=== PATIENT | female | born 1935 | race African-American/Black ===

== ENCOUNTER 2020-03-27 11:46 | Observation (INO) | payer MEDICARE, SELFPAY ==
[2020-03-27] VITALS (9 sets, daily range): BP systolic 134–198; BP diastolic 80–115; PULSE 64–106; RESP 16–18; TEMP 36–36.4; O2SAT 97–100; BMI 29.7
--- NOTE | ~2020-03-27 | CT_ITS ---
EXAMINATION: CTA BRAIN/CAROTID DATE: 03/27/2020 13:22 INDICATION: Stroke TECHNIQUE: Computed tomographic angiography (CTA) of the head and neck was performed with 100 mL Omni paque-350 intravenous contrast. Multiplanar reconstructions and maximum intensity projection 3D-recon structions of the carotid arteries and of the intracranial arteries were created by the technologist on a separate workstation. Automated exposure control and iterative reconstruction technique were emp loyed.The dose-length product was 972.80 mGy-cm. COMPARISON: Head CT dated 03/27/2020 FINDINGS: Carotid arteries: No appreciable atherosclerotic plaque in the bilateral common or internal carotid arteries with 0% st enosis of the left or right carotid bulbs relative to normal distal artery lumen diameter (NASCET cri teria). Cervical soft tissues are unremarkable. Mild emphysema with fine peripheral reticular opaciti es in the visualized bilateral upper lungs which could represent either atelectasis during expiratory phase of imaging or mild pulmonary edema. Severe lower cervical spondylosis. Intracranial arteries There is no hemodynamically significant stenosis in the vertebral, basilar and internal carotid arter ies. Vertebral arteries are codominant. There are no aneurysms identified. Both A1 and P1 segments a re patent. The right P1 segment is smaller than the left with flow to the right posterior cerebral ar kavitha is supplemented by collateral flow from the right internal carotid artery via a patent right pos terior commuting artery. Cerebral arterial arborization appears symmetric. No abnormally enhancing br ain lesions. IMPRESSION: 1. 0% stenosis of the left and right carotid bulbs relative to normal distal artery lumen diameter (N ASCET criteria). 2. Normal cerebral CT angiogram with no significant stenosis, aneurysm or thrombosis. 3. Fine peripheral reticular opacities at the apices of the lungs which could represent atelectasis o r mild pulmonary edema. 4. Mild emphysema. Reviewed, dictated and finalized at location A. NESS ASSOCIATE IMPRESSION: 1. 0% stenosis of the left and right carotid bulbs relative to normal distal ar kavitha lumen diameter (NASCET criteria). 2. Normal cerebral CT angiogram with no significant stenosis, aneurysm or throm bosis. 3. Fine peripheral reticular opacities at the apices of the lungs which could r epresent atelectasis or mild pulmonary edema. 4. Mild emphysema.
--- NOTE | ~2020-03-27 | XR_ITS ---
EXAMINATION: XR chest 1V portable DATE: 03/27/2020 12:06 INDICATION: Unresponsive. Stroke symptoms. TECHNIQUE: frontal view of the chest was obtained. COMPARISON: Chest radiograph dated 10/14/2018 FINDINGS: Calcified nodule at the left lung base and calcified left hilar and mediastinal lymph nodes consisten t with old granulomatous disease. The lungs remain otherwise clear with no focal airspace opacities, pulmonary edema, pleural effusion or pneumothorax. The cardiomediastinal silhouette is normal. Loose osteochondral bodies at the right shoulder. IMPRESSION: 1. No acute cardiopulmonary disease. Reviewed, dictated and finalized at location A. ICAL GARMENT ASSEMBLY SUPERVISOR
--- NOTE | ~2020-03-27 | CT_ITS ---
EXAMINATION: CT brain wo con DATE: 03/27/2020 11:54 INDICATION: Headache and left-sided facial droop TECHNIQUE: Computed tomography (CT) of the head was performed without intravenous contrast. Sagittal and coronal reconstructions were performed. The mA was adjusted according to patient size. Iterative reconstruction technique was employed. The dose-length product was 605.33 mGy-cm. COMPARISON: head CT dated 10/14/18 FINDINGS: No acute intracranial hemorrhage, acute infarction or abnormal extra axial fluid collection. Small ol d lacunar infarct in the white matter of the left frontal lobe centrum semiovale. There is moderate s cattered white matter hypoattenuation consistent with chronic small vessel ischemic disease. Symmetr ic prominence of the sulci and ventricles consistent with mild age-appropriate diffuse cerebral volum e loss. No mass/mass effect. Changes of bilateral intraocular lens replacement. Mild mucoperiosteal t hickening at the bilateral ethmoid sinuses. The orbits and mastoid air cells are normal. Intracranial calcified cerebral atherosclerosis is noted. IMPRESSION: 1. No acute intracranial process. 2. Small old lacunar infarct at the left frontal lobe centrum semiovale. 3. Age-related changes including mild diffuse volume loss and moderate scattered white matter hypoatt enuation consistent with chronic small vessel ischemic disease. Reviewed, dictated and finalized at location A. US PERFORMER IMPRESSION: 1. No acute intracranial process. 2. Small old lacunar infarct at the left frontal lobe centrum semiovale. 3. Age-related changes including mild diffuse volume loss and moderate scattere d white matter hypoattenuation consistent with chronic small vessel ischemic di sease.
--- NOTE | ~2020-03-27 | MR_ITS ---
EXAMINATION: MR brain/brain stem wo con DATE: 03/28/2020 12:08 INDICATION: Word finding abnormality. TECHNIQUE: Magnetic resonance imaging (MRI) of the brain and brainstem was performed without intraven ous contrast. Sequences included sagittal and axial T1-weighted FSE, axial diffusion-weighted FS EPI, axial T2*-weighted GRE, axial T2-weighted FLAIR Propeller, and axial T2-weighted Propeller. Apparent diffusion coefficient (ADC) maps were created. COMPARISON: Brain MRI 10/10/2018, head CT 03/27/2020 FINDINGS: There are scattered areas of nonspecific increased T2-weighted signal intensity in the cere bral white matter and walker. There is no intracranial hemorrhage, acute infarction, or abnormal intrac ranial mass lesion. The ventricles are normal in size. The mastoid air cells are normal. There are li aguila changes of ocular lens replacement surgeries. There is mild mucosal thickening in the paranasal sinuses. IMPRESSION: 1. Stable moderate nonspecific cerebral white matter disease and pontine disease, which likely repres ents chronic small vessel ischemic disease. Reviewed, dictated and finalized at location A. IER ASSOCIATE IMPRESSION: 1. Stable moderate nonspecific cerebral white matter disease and pontine diseas e, which likely represents chronic small vessel ischemic disease.
[2020-03-27 12:19] LABS: Basophils Percent Auto 0.4 % (0.2-1.2); Eosinophils Absolute Auto 0.1 K/mm3 (0-0.3); Eosinophils Percent Auto 1.5 % (0-4.4); Hematocrit 41.4 % (37.0-47.0); Hemoglobin 14.2 g/dL (12.0-15.0); Immature Granulocyte Absolute 0.03 K/mm3 (0.00-0.031); Immature Granulocyte Percent A 0.6 % (0-0.5); Immature Platelet Fraction Pct 7.9 % (0.9-11.2); Lymphocytes Absolute Auto 1.61 K/mm3 (0.9-3.2); Lymphocytes Percent Auto 30.6 % (18.3-44.2); Mean Corpuscular HGB Conc 34.3 g/dl (32-36); Mean Corpuscular Hemoglobin 31.1 pg (26-34); Mean Corpuscular Volume 90.6 fl (80-100); Mean Platelet Volume 10.7 fl (7.4-10.4); Monocytes Absolute Auto 0.4 K/mm3 (0.1-0.6); Monocytes Percent Auto 7.2 % (2.6-8.5); Neutrophils Absolute Auto 3.1 K/mm3 (1.3-6.7); Neutrophils Percent Auto 59.7 % (45.5-73.1); Platelet Count Result 220 k/mm3 (150-375); Red Blood Count 4.57 M/mm3 (4.2-5.4); Red Cell Distribution Width 12.2 % (11.5-14.5); White Blood Count 5.3 K/mm3 (4.5-10.0)
[2020-03-27 12:26] LABS: Prothrombin Time 13.5 Seconds (11.1-14.7)
[2020-03-27 12:34] LABS: Platelet Clumps Present; Platelet Estimate Adequate (Adequate)
--- NOTE | 2020-03-27 12:43 | ED.NEUROSD ---
HPI - Neuro Symptoms/Deficit General Chief Complaint: Suspected CVA Stated Complaint: code stroke Time Seen by Provider: 03/27/20 11:53 Source: patient and EMS Limitations: no limitations History of Present Illness HPI Narrative: 84 years old -[place] female, assisting living brought to the emergency room with stroke symptoms. Patient last time was seen at her normal baseline roughly 2-hour prior to calling the ambulance. Patient son called the assisted living asked them to check on his mom because she told him earlier that she had headache. When the staff went to the patient room found her slumped over, unable to talk, unable to do anything could be asked her to do. Patient usually is talkative, walks without janitorial assistant. The staff deny that the patient have any fever, chills, nausea, vomiting, chest pain, back pain, shortness of breath or exposure to anybody with COVID-19. On arrival to the emergency room patient is awake, alert and oriented x3 denying any new symptoms. 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 Related Data Allergies Allergy/AdvReac Type Severity Reaction Status Date / Time isoniazid Allergy Severe SYNCOPE Verified 01/19/20 13:56 meperidine Allergy Mild hives Verified 01/19/20 13:56 morphine Allergy Mild confusion Verified 01/19/20 13:56 Review of Systems Review of Systems: Narrative: CONSTITUTIONAL: Denies fever, chills, or sweats. EYES: Denies visual changes, redness, or discharge. ENT: Denies rhinorrhea, congestion, sore throat, or otalgia. CARDIOVASCULAR: Denies chest pain, palpitations, or edema. RESPIRATORY: Denies cough or dyspnea. GASTROINTESTINAL: Denies abdominal pain, nausea, vomiting, or diarrhea. GENITOURINARY: Denies dysuria or hematuria. SKIN: Denies rash or itching. MUSCULOSKELETAL: Denies back pain, joint pain, or myalgia. NEUROLOGIC: Denies headache, numbness, or weakness. PSYCHIATRIC: Denies anxiety or depression. [facility] Past Medical History Medical History Arthralgia Chronic pain after traumatic injury Diabetes HTN (hypertension) Neurogenic claudication Peripheral neuropathy Spinal stenosis of lumbar region with neurogenic claudication Spinal stenosis, lumbar region without neurogenic claudication Traumatic compression fracture of T12 thoracic vertebra Surgical History Surgical History No history of previous surgery Social History Social History Social History: Smoking status: Never smoker Second hand tobacco smoke exposure: No Alcohol intake: never Substance use: never Substance use type: does not use Gender identity (if verbalized by the patient): Female Exam Narrative: Exam Narrative: General appearance: Well-developed, well-nourished Skin: Normal color Head: Normocephalic, nontraumatic Eyes: Clear conjunctiva ENT: Oropharynx normal, ears normal, nose normal Neck: Supple, nontender Chest and respiratory: Airway patent, no respiratory distress, no accessory muscle use Heart: Regular rate/rhythm Abdomen: Soft, nontender, no organomegaly, quiet bowel sounds Vascular: Normal peripheral pulses, normal capillary refill. Musculoskeletal: Normal range of motion, nontender back, Neurologic: Alert and oriented ? her name, age and the name of the president. FISH PROTECTOR is normal as tested, no gross motor deficit except left facial drooping, history of Friedman's palsy Course Course Emergency Course: Resolved, stable Consultations Consultation #1: dr mercedes Date: 03/27/20 Time: 13:35 Vital Signs Vital signs: Vit
[2020-03-27 12:47] LABS: Partial Thromboplastin Time < 20.0 SECONDS (22.3-36.8)
[2020-03-27 12:55] LABS: Anion Gap 8 mmol/L (8-16); Blood Urea Nitrogen 10 mg/dL (7-17); Calcium 9.7 mg/dL (8.4-10.2); Carbon Dioxide 27 mmol/L (22-30); Chloride 105 mmol/L (98-107); Estimated CRCL calculation 45 ml/min; Estimated Glomerular Filt Rate > 60; Glucose 118 mg/dL (65-105); Potassium 3.4 mmol/L (3.4-5.0); Sodium 140 mmol/L (137-145)
[2020-03-27 13:07] LABS: Troponin I < 0.012 ng/mL (0.000-0.034)
--- NOTE | 2020-03-27 13:40 | ECG_ITS ---
Measurements Intervals [place] Rate: 73 P: -15 MO: 171 QRS: -20 QRSD: 84 T: -15 QT: 413 QTc: 455 Interpretive Statements SINUS RHYTHM DELAYED PRECORDIAL R/S TRANSITION VOLTAGE CRITERIA FOR LVH BORDERLINE T WAVE ABNORMALITY- ANTEROLAT/INF LEADS BASELINE ARTIFACT- I, III, AVR, AVL, AVF, V3 BORDERLINE ECG Electronically Signed On 03-28-2020 8:26:20 CAKE PULLER by Angel Goddard D.O.
[2020-03-27] MEDS: ASPIRIN 81 MG CHEWABLE TABLET 324 MG PO (13:45)
--- NOTE | 2020-03-27 15:28 | ADMGEN ---
This patient, Elizabeth Noel, was admitted to Medical Room 255-01. Patient/family oriented to hospital policies and general routines including ID bracelet, bed and alarms, visiting hours, pain management, procedures, bathroom and other care routines, personal items, smoking policy, room service/diet, and visiting hours. Information on how to activate the Rapid Response Team has been discussed. Patient/Family are encouraged to report perceived risks to care and to ask questions if they do not understand what they are told or what they should do.
--- NOTE | 2020-03-27 16:00 | PM.IMHP ---
H&P: HPI History of Present Illness Date/Time: 03/27/20 16:00 Chief complaint: Not responding to nursing staff. Narrative: Elizabeth Noel is an 84-year-old female with dementia, hypertension, and diet-controlled diabetes who presented to the emergency department earlier today via EMS from her halfway facility for evaluation as she was apparently not responding to nursing staff. She is a fair historian but seems to confabulate when discussing the events that occurred today, and as such some of the following history is obtained via a review of her electronic medical records. I am told that she was in her usual state of health this morning, last seen at approximately 10:30. Not long prior to arrival to the emergency department staff at her nursing facility received a phone call from the patient's son, reporting that the patient had called him with complaints of a headache. They then went to check on the patient and she was found slumped in a chair, alert but unable to talk to follow commands. the patient tells me that she heard what they were saying however was unable to come up with any words. On EMS arrival they noticed a left-sided facial droop but it has since come to fruition that this is residual from Friedman palsy years ago. On arrival to the emergency department she was alert and seemed to have difficulties finding words with evidence of slurred speech and at the time my evaluation her speech is clear but she still appears to have some difficulties with word-finding. At times she will give answers that are somewhat bizarre and not necessarily related to the question asked, and I am not certain if this is perhaps word salad or if this may be due to underlying confusion. She is pretty adamant however that she had a diffuse headache earlier today and just was not feeling like myself. She denies acute auditory and visual changes, vertigo, focal weakness, and paresthesias. Review of Systems Review of Systems: Narrative: Twelve systems are reviewed with pertinent positives and negatives as per HPI. She denies fever, chills, sweats. No recent cold or flu symptoms. She has no known exposure to those positive for COVID-19. She denies chest pain, pleuritic pain, palpitations. No known history of stroke however there is evidence of such on brain MRI today. Appetite has been good. No nausea, vomiting, diarrhea, or dysuria. Except as documented, all other systems were reviewed and are negative. PMFSH Past Medical History Medical History (Updated 03/27/20 @ 20:48 by Carmina Wolf PA-C) Anxiety Chronic back pain Stemming from compression fracture at T12 as well as spinal stenosis in the lumbar region. Compression fracture of T12 vertebra Dementia Depression Diet-controlled type 2 diabetes mellitus Hemoglobin A1c was 5.1% in September 2018. 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 Hypertension Osteoarthritis Peripheral neuropathy Spinal stenosis of lumbar region Surgical History Surgical History (Updated 03/27/20 @ 20:46 by Carmina Wolf PA-C) History of left knee replacement Family History Family History (Updated 03/27/20 @ 20:46 by Carmina Wolf PA-C) Other Hypertension Social History Social History (Updated 03/27/20 @ 22:52 by Carmina Wolf PA-C) Social History: Lives in assisted living at [facility]. She is and has 4 children. 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 No alcohol, tobacco, or illicit substance use. Mariusz Omalley (son) is her surrogate decision maker and she is listed as a full code. Spiritual care concerns: No Meds Home Medications and Allergies Home Medications Medication Instructions Recorded Confirmed Type metoprolol tartrate 50 mg tablet 50 mg PO Q12H #90 tablet 11/23/19 03/27/20 Rx hydrochlorothiazide 12.5 mg tablet 12.5 mg PO DAILY #90 tablet 12/02/19 03/27/20 Rx losartan 100 mg tablet 100 mg PO DAILY #90 tablet 12/02/19 03/27/20 Rx
[2020-03-27] MEDS: METOPROLOL TARTRATE 50 MG TAB PO (21:29)
[2020-03-28] VITALS (7 sets, daily range): BP systolic 121–156; BP diastolic 76–81; PULSE 61–89; RESP 16; TEMP 36.1–36.5; O2SAT 99
[2020-03-28 05:55] LABS: Alanine Aminotransferase 15 U/L (4-35); Albumin Level 3.5 g/dL (3.5-5.1); Alkaline Phosphatase 54 U/L (38-126); Anion Gap 8 mmol/L (8-16); Aspartate Amino Transferase 27 U/L (14-36); Bilirubin,Total 1.4 mg/dL (0.2-1.3); Blood Urea Nitrogen 9 mg/dL (7-17); Calcium 9.3 mg/dL (8.4-10.2); Carbon Dioxide 25 mmol/L (22-30); Chloride 107 mmol/L (98-107); Cholesterol 197 mg/dL (0-200); Estimated CRCL calculation 42 ml/min; Estimated Glomerular Filt Rate > 60; Glucose 121 mg/dL (65-105); HDL Direct 42 mg/dL; Potassium 3.3 mmol/L (3.4-5.0); Sodium 140 mmol/L (137-145); Triglycerides 92 mg/dL (<150)
[2020-03-28 06:00] LABS: Hemoglobin A1C 5.6 % (<5.7)
[2020-03-28 06:06] LABS: LDL Cholesterol Direct 125 mg/dL
[2020-03-28 07:26] LABS: Glucose Point of Care 108 (65-105)
--- NOTE | 2020-03-28 09:13 | WPDNEURCNPN ---
Assessment and Plan Assessment and plan (1) Brain TIA: Code(s): G45.9 - Transient cerebral ischemic attack, unspecified Status: Acute (2) HTN (hypertension): Code(s): I10 - Essential (primary) hypertension Status: Acute (3) Ambulatory dysfunction: Code(s): R26.2 - Difficulty in walking, not elsewhere classified Status: Acute (4) Spinal stenosis, lumbar region without neurogenic claudication: Code(s): M48.061 - Spinal stenosis, lumbar region without neurogenic claudication Status: Acute Additional Plan history of acute changes in the mental status with the complaints of severe headache but with negative CT scan except the old lacunar infarct and negative CTA and clinical examination compatible with old left facial mild dementia MRI will be obtained just rule out the presence of any new stroke in the meantime she will be continued on the same medication that is aspirin 81 mg daily Consult date: 03/28/20 Time Seen: 09:10 HPI: Elizabeth Noel is a 84 year old female Admitted to the hospital with the complaints of not responding to nursing staff in addition to the ongoing history of 1. Dementia 2. Hypertension 3. Diet-controlled diabetes mellitus at the time of initial evaluation in the emergency room it was mention that she has been confabulating. Patient in the was in her room and her son had called the nursing staff that she was complaining of headache Donis they went to check on the patient she was found slumped in a chair but unable to talk and follow the commands on arrival EMS noted that she had left-sided facial droop but it was reported that was from the residual from Friedman's palsy years ago. Subsequently it was noted that she was giving the answers only intermittently appropriately. Patient does have ongoing history of dementia along with hypertension, spinal stenosis of lumbar region with peripheral neuropathy and compression fracture of the T12 vertebra. Evaluation revealed fairly normal labs with potassium of 3.3 glucose 121, total bilirubin 1.4, CT scan of the head with small old lacunar infarct at the left frontal lobe centrum semi ovale and age-related changes, normal CTA with no significant and stenosis, thrombosis, or aneurysm. Review of Systems Review of Systems: All systems reviewed & are unremarkable except as noted in HPI and below [facility] Past Medical History Medical History Anxiety Chronic back pain Stemming from compression fracture at T12 as well as spinal stenosis in the lumbar region. Compression fracture of T12 vertebra Dementia Depression Diet-controlled type 2 diabetes mellitus Hemoglobin A1c was 5.1% in September 2018. 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 Hypertension Osteoarthritis Peripheral neuropathy Spinal stenosis of lumbar region Surgical History Surgical History History of left knee replacement Family History Family History Other Hypertension Social History Social History Social History: Lives in assisted living at [facility]. She is and has 4 children. 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 No alcohol, tobacco, or illicit substance use. Mariusz Omalley (son) is her surrogate decision maker and she is listed as a full code. Spiritual care concerns: No Meds Home Medications and Allergies Home Medications Medication Instructions Recorded Confirmed Type metoprolol tartrate 50 mg tablet 50 mg PO Q12H #90 tablet 11/23/19 03/27/20 Rx hydrochlorothiazide 12.5 mg tablet 12.5 mg PO DAILY #90 tablet 12/02/19 03/27/20 Rx losartan 100 mg tablet 100 mg PO DAILY #90 tablet 12/02/19 03/27/20 Rx Allergies Allergy/AdvReac Type Severity Reaction Status Date / Time isoniazid Allergy Severe SYNCOPE Verified
[2020-03-28] MEDS: hydroCHLOROthiazide 12.5 MG CAPSULE PO (09:58)
[2020-03-28] MEDS: METOPROLOL TARTRATE 50 MG TAB PO (09:58)
[2020-03-28] MEDS: ASPIRIN 81 MG CHEWABLE TABLET PO (09:58)
[2020-03-28] MEDS: LOSARTAN POTASSIUM 100 MG TABLET PO (09:59)
[2020-03-28] MEDS: POTASSIUM CHLORIDE 20 MEQ PACKET (FOR LIQUID) 40 MEQ PO (10:01)
[2020-03-28] MEDS: LORATADINE 10 MG TABLET PO (14:38)
[2020-03-28] MEDS: FLUTICASONE PROPIONATE 0.05% NA SPR 16 GM BTL (*BKC) 1 SPRAY NASAL (14:38)
--- NOTE | 2020-03-28 15:49 | PM.DS ---
DS: Admitting Diagnosis Admitting Diagnosis Admitting Diagnosis: Not responding to nursing staff. DS: Discharge Diagnosis Discharge Diagnosis (1) Neurological symptoms: Code(s): R29.90 - Unspecified symptoms and signs involving the nervous system Status: Acute (2) Hypertension: Code(s): I10 - Essential (primary) hypertension Status: Inactive (3) Diet-controlled type 2 diabetes mellitus: Code(s): E11.9 - Type 2 diabetes mellitus without complications Status: Inactive (4) Dementia: Code(s): F03.90 - Unspecified dementia without behavioral disturbance Status: Inactive DS: Summary Hospital Course Reason for hospitalization: Chief complaint: Not responding to nursing staff. Narrative: Elizabeth Noel is an 84-year-old female with dementia, hypertension, and diet-controlled diabetes who presented to the emergency department earlier today via EMS from her half-way facility for evaluation as she was apparently not responding to nursing staff. She is a fair historian but seems to confabulate when discussing the events that occurred today, and as such some of the following history is obtained via a review of her electronic medical records. I am told that she was in her usual state of health this morning, last seen at approximately 10:30. Not long prior to arrival to the emergency department staff at her nursing facility received a phone call from the patient's son, reporting that the patient had called him with complaints of a headache. They then went to check on the patient and she was found slumped in a chair, alert but unable to talk to follow commands. the patient tells me that she heard what they were saying however was unable to come up with any words. On EMS arrival they noticed a left-sided facial droop but it has since come to fruition that this is residual from Friedman palsy years ago. On arrival to the emergency department she was alert and seemed to have difficulties finding words with evidence of slurred speech and at the time my evaluation her speech is clear but she still appears to have some difficulties with word-finding. At times she will give answers that are somewhat bizarre and not necessarily related to the question asked, and I am not certain if this is perhaps word salad or if this may be due to underlying confusion. She is pretty adamant however that she had a diffuse headache earlier today and just was not feeling like myself. She denies acute auditory and visual changes, vertigo, focal weakness, and paresthesias. Hospital Course: Patient presented with complaint of headache and stroke-like symptom, patient had a CT scan of the head as well as MRI with no acute injury patient remains clinically stable to her baseline, patient was seen by Neurologist, discharge patient to assisted living, patient is clinically stable Status at Discharge Functional status at discharge: uses cane/walker Overall status at discharge: patient is back to baseline Time Spent with Patient Time attestation: Total time spent providing and/or coordinating discharge services: Patient was seen and examined at the time of the discharge Condition at discharge is stable Code status: Full code. Time spent preparing discharge summary, discharge medications, discussing discharge planning with skilled nursing case manager and patient is 30 minutes. Time spent: Less than 30 minutes Exam Narrative: Exam Narrative: Elderly frail Patient is comfortable, NAD HEENT: eyes are clear and none icteric LUNGS:CTA HEART: RR S1S2 ABD: BS+, Soft and nontender Lower extremities: no edema SKIN: nonjaundiced Neuro: grossly intact. DS: Data Data Completed and Pending Labs on day of discharge: Labs from last 24 hours 03/28/20 03/28/20 03/28/20 05:29 05:29 05:29 Sodium 140 Potassium 3.3 L Chloride 107 Carbon Dioxide 25 Anion Gap 8 BUN 9 Creatinine 1.00 Estim Creat Clear Calc 42 Estimated G
== END 2020-03-28 18:10 ==
LOC: ANHED 13:39 → ANH2MED 15:51
PROVIDERS: Physician Assistant; Admitting Provider Internal Medicine; Emergency Provider Emergency Medicine; PCP Family Medicine; Visit Provider Family Medicine
DX: G45.9 Transient cerebral ischemic attack, unspecified (principal); R26.2 Difficulty in walking, not elsewhere classified; I10 Essential (primary) hypertension; E11.9 Type 2 diabetes mellitus without complications; F03.90 Unspecified dementia, unspecified severity, without behavioral disturbance, psychotic disturbance, mood disturbance, and anxiety; M48.061 Spinal stenosis, lumbar region without neurogenic claudication; Z96.652 Presence of left artificial knee joint; Z86.69 Personal history of other diseases of the nervous system and sense organs; F80.89 Other developmental disorders of speech and language
CPT/HCPCS: 36415; 70450; 70496; 70498; 70551; 71045; 80048; 80053; 80061; 82948; 83036; 84443; 84484; 85025; 85055; 85610; 85730; 92523; 93005; 97161; 97165; 99285; A9270; G0378; Q9967

== ENCOUNTER 2020-08-02 15:55 | Outpatient (CLI) | payer MEDICARE, SELFPAY ==
[2020-08-02 16:42] LABS: Anion Gap 7 mmol/L (8-16); Blood Urea Nitrogen 16 mg/dL (7-17); Calcium 9.3 mg/dL (8.4-10.2); Carbon Dioxide 29 mmol/L (22-30); Chloride 100 mmol/L (98-107); Estimated Glomerular Filt Rate 57; Glucose 113 mg/dL (65-105); Potassium 3.8 mmol/L (3.4-5.0); Sodium 136 mmol/L (137-145)
== END 2020-08-02 15:56 | disposition home or self-care (01) ==
LOC: ANHLAB 15:56
PROVIDERS: PCP Family Medicine; Visit Provider Family Medicine
DX: I10 Essential (primary) hypertension (principal)
CPT/HCPCS: 36415; 80048

== ENCOUNTER 2021-03-04 12:59 | Observation (INO) | payer MEDICARE, SELFPAY ==
[2021-03-04] VITALS (22 sets, daily range): BP systolic 118–183; BP diastolic 84–107; PULSE 73–108; RESP 14–18; TEMP 36.9–37.2; O2SAT 90–100; BMI 31.1
--- NOTE | ~2021-03-04 | XR_ITS ---
EXAMINATION: XR chest 1V portable EXAM DATE: 03/04/2021 13:41 INDICATION: CVA protocol . TECHNIQUE: Portable AP frontal chest x-ray was obtained. Comparison is made to prior examination from 03/27/2020. FINDINGS: There is low lung volume with some ill-defined bilateral opacity probably edema or pneumoni a suspected. This was not present on previous examination. Mild cardiomegaly. There is no pneumothora x suspected. There are no pleural effusions. IMPRESSION: 1. Mild ill-defined bilateral edema or pneumonia. 2. Mild cardiomegaly. Reviewed, dictated and finalized at location A. TH INFORMATION CODER
--- NOTE | ~2021-03-04 | CT_ITS ---
EXAMINATION: CTA brain carotid EXAM DATE: 03/04/2021 13:21 INDICATION: Focal weakness. Speech impairment which has resolved. TECHNIQUE: Noncontrast head CT. Spiral CTA of the carotid arteries was performed with intravenous i njection 100 cc of Omnipaque 350. Axial, coronal, sagittal reformatted images reviewed. Additional r eformatted images created on dedicated 3-D workstation. NASCET comparable standard used to assess th e degree of arterial stenosis. Spiral CT angiogram cerebral arteries performed with the same intrave nous injection of contrast. Source images of the brain CTA transferred to dedicated workstation for 3 -D rotational image creation. Coronal, sagittal maximum intensity pixel images also reviewed. The d ose-length product (DLP) for this examination was 1660.55 mGy-cm. The exposure was tailored accordi ng to patient size, and iterative reconstruction (ASIR) was used as additional dose reduction techniq ue. There is no prior study for comparison. FINDINGS: There is no carotid bulb arterial sclerosis, 0% carotid stenosis bilaterally. The vertebral arteries are codominant. There is no carotid or vertebral basilar arterial dissection or fibromuscu lar dysplasia. There are no cerebral artery aneurysms. There is symmetric cerebral artery arborizatio n. The sagittal, transverse and sigmoid sinuses enhance normally, no venous sinus thrombosis. Interna l cerebral veins also enhance normally. There is small left thalamic hypodensity, not present on prior MRI examination from March 2020. Ag e indeterminate lacunar infarction. There is no acute intraparenchymal hemorrhage. No evidence of in traparenchymal brain mass lesion. There is moderate periventricular and subcortical hypodensity, non specific but probably related to small vessel ischemic disease. There is mild prominence of the sul ci and ventricles related to cerebral atrophy. There is no mass effect or midline shift. There is no obstructive hydrocephalus suspected. There are no extra-axial collections. Bilateral cataract dejesus rgery. Incidental Findings: Cervical spondylosis. IMPRESSION: 1. Age-indeterminate left thalamic lacunar infarction. 2. Bilateral carotid bulb 0% stenosis. 3. Microangiopathy and atrophy. As per stroke protocol, I called no acute findings results, discussed with Gomez Martínez MD at 1 05/04/2020 13:29 CRAB BUTCHER. Reviewed, dictated and finalized at location A. BUTCHER IMPRESSION: 1. Age-indeterminate left thalamic lacunar infarction. 2. Bilateral carotid bulb 0% stenosis. 3. Microangiopathy and atrophy. As per stroke protocol, I called no acute findings results, discussed with Evan Martínez MD at 03/04/2021 13:29 CRAB BUTCHER.
--- NOTE | ~2021-03-04 | MR_ITS ---
EXAMINATION: MR brain/brain stem wo/w con EXAM DATE: 03/05/2021 14:00 INDICATION: History of stroke with a TIA . Speech impairment, resolved. Abnormal hypodensity in the l eft thalamus. TECHNIQUE: Magnetic resonance imaging (MRI) of the brain/brain stem obtained without contrast. Sagit tha T1, axial diffusion, gradient echo (T2*), T1, T2, FLAIR sequences obtained. Patient was then inj ected with 17 cc intravenous Multihance contrast. Axial and coronal postcontrast T1 weighted sequence s obtained. Comparison is made to prior examination from 03/28/2020. FINDINGS: Interval development of punctate old infarctions in the left thalamus (correlating to the CT finding) and the left centrum semiovale. No evidence of acute infarction. There is no acute hemorr alek seen on the T2*, a hemosiderin sensitive sequence. No intraparenchymal brain mass lesion. Th ere is moderate periventricular and subcortical T2/FLAIR signal hyperintensity, nonspecific but proba ever related to small vessel ischemic disease (microangiopathy). There is mild prominence of the sul ci and ventricles related to cerebral atrophy. There are no extra-axial collections. Flow voids ar e seen in the cerebral arteries on the T2-weighted sequences consistent with their expected patency. Patient has had bilateral ocular lens surgery. Soft tissue is unremarkable. There are no areas of abnormal enhancement on the postcontrast images. IMPRESSION: 1. No acute findings. 2. Interval development of several punctate old left lacunar infarctions. 3. Chronic age related findings. Reviewed, dictated and finalized at location A. ITOMETRIST
--- NOTE | ~2021-03-04 | US_ITS ---
EXAMINATION: US carotid duplex BI DATE: 03/05/2021 15:22 INDICATION: Transient ischemic episode TECHNIQUE: Grayscale, color Doppler, and pulsed Doppler images of the cervical carotid arteries were obtained. The degree of vessel stenosis is placed in one of the following categories: normal, <50%, 5 0-69%, >=70% but less than near-occlusion, near-occlusion, or total occlusion. Note that percent sten osis relative to normal distal artery lumen diameter is indirectly measured from velocity measurement s as described by Johnathan, et al. Radiology 2003; [id number]. COMPARISON: None. FINDINGS: RIGHT: The right common carotid artery (CCA) peak systolic velocity (PSV) is 51 cm/s. The right internal car otid artery (ICA) PSV is 20 cm/s. The right ICA end-diastolic velocity (EDV) is 7 cm/s. The right ICA /CCA PSV ratio is 0.4. Grayscale and color Doppler images demonstrate no evident stenosis or plaque i n the ICA. The external carotid artery (ECA) PSV is 34 cm/s. The right vertebral artery is poorly vis ualized. Reversed flow is seen in the expected region of the vertebral artery however on prior CT ang iogram performed 1 day prior the right vertebral artery is opacified in its entirety from its origin to its confluence with the left vertebral artery with no evident atherosclerosis or stenosis suggesti ng the identified waveform does not correspond to the vertebral artery. LEFT: The left CCA PSV is 47 cm/s. The left ICA PSV is 26 cm/s. The left ICA EDV is 4 cm/s. The left ICA/CC A PSV ratio is 0.6. Grayscale and color Doppler images demonstrate no evident stenosis or plaque plaq ue in the ICA. The ECA PSV is 43 cm/s. There is antegrade flow in the left vertebral artery. IMPRESSION: 1. No evident plaque or stenosis in the right internal carotid artery. 2. No evident plaque or stenosis in the left internal carotid artery. Reviewed, dictated and finalized at location A. RNET MANAGER
--- NOTE | 2021-03-04 13:01 | ECG_ITS ---
Measurements Intervals [place] Rate: 71 P: 24 CO: 208 QRS: -19 QRSD: 82 T: -6 QT: 394 QTc: 428 Interpretive Statements SINUS RHYTHM DELAYED PRECORDIAL R/S TRANSITION VOLTAGE CRITERIA FOR LVH BORDERLINE T WAVE ABNORMALITY- INFERIOR LEADS BASELINE WANDER- II, III, AVR, AVL, AVF BORDERLINE ECG Electronically Signed On 03-04-2021 19:45:16 AIRFIELD SERVICES OFFICER by Angel Goddard D.O.
--- NOTE | 2021-03-04 13:22 | PC.NURSE ---
When arriving in CT at 1315 pt is able to talk. Alert. Moving all extremities.
--- NOTE | 2021-03-04 13:29 | ED.NEUROSD ---
HPI - Neuro Symptoms/Deficit General Chief Complaint: Suspected CVA Stated Complaint: weakness Time Seen by Provider: 03/04/21 13:13 Source: EMS Mode of arrival: EMS Limitations: altered mental status History of Present Illness HPI Narrative: Patient is an 85-year-old female brought in by EMS after suddenly being nonverbal at the retirement started approximately 1 hour prior to arrival. According to EMS patient was eating lunch, started complaining of a headache and when they brought her in back to her room she suddenly became nonverbal and not responding to commands. Patient has a history of Friedman palsy with left facial droop, this is nothing new. On examination in the ER patient is now verbal and following commands. Patient denies any headache, dizziness, focal weakness or numbness, visual disturbance, speech disturbance, chest pain, shortness of breath, nausea, vomiting, fever or chills. Reviewed her past medical history she had a similar episode last year, had a full work-up done including an MRI of her head. Related Data Home Medications Medication Instructions Recorded Confirmed acetaminophen 500 mg tablet 500 mg PO Q6H PRN 08/02/20 08/02/20 Allergies Allergy/AdvReac Type Severity Reaction Status Date / Time isoniazid Allergy Severe SYNCOPE Verified 08/02/20 15:00 meperidine Allergy Mild hives Verified 08/02/20 15:00 morphine Allergy Mild confusion Verified 08/02/20 15:00 Review of Systems Review of Systems: All systems reviewed & are unremarkable except as noted in HPI and below Constitutional: Constitutional: Denies body ache(s), Denies chills, Denies excessive sweating, Denies fatigue, Denies fever(s), Denies headache(s), Denies lethargy, Denies malaise, Denies weakness and Denies weight loss Eyes: Eyes: Denies blurry vision, Denies change in vision and Denies loss of vision ENT: Denies dizziness, Denies ear discharge, Denies headache(s), Denies lip swelling, Denies epistaxis, Denies nasal congestion, Denies neck pain, Denies throat swelling and Denies tongue swelling Cardiovascular: Cardiovascular: Denies chest pain, Denies chest pain at rest, Denies chest pain with activity, Denies diaphoresis, Denies rapid heart rate, Denies edema, Denies irregular heart rhythm, Denies lightheadedness, Denies palpitations, Denies dyspnea and Denies dyspnea on exertion Respiratory: Respiratory: Denies chest congestion, Denies cough, Denies hemoptysis, Denies dyspnea and Denies dyspnea on exertion Gastrointestinal: Gastrointestinal: Denies abdominal pain, Denies melena, Denies hematochezia, Denies diarrhea, Denies nausea, Denies vomiting and Denies hematemesis Musculoskeletal: Musculoskeletal: Denies abnormal gait, Denies deformity, Denies joint swelling, Denies limited range of motion, Denies neck pain and Denies numbness Neurologic: Denies Abnormal speech present, Denies abnormal gait, Denies confusion, Denies dizziness, Denies headache(s), Denies focal weakness, Denies loss of vision, Denies numbness, Denies Other visual disturbances, Denies Sensory deficit (Neuro) and Denies weakness Psychiatric: Psychiatric: Denies confusion, Denies depression, Denies auditory hallucinations, Denies homicidal ideation and Denies suicidal ideation Endocrine: Endocrine: Denies cold intolerance, Denies excessive sweating, Denies fatigue, Denies heat intolerance and Denies palpitations Hematologic/Lymphatic: Hematologic/Lymphatic: Denies easy bleeding and Denies easy bruising Allergic/Immunologic: Allergic/Immunologic: Denies lip swelling, Denies throat swelling and Denies tongue swelling PMFSH Past Medical History Medical History Anxiety Chronic back pain Stemming from compression fracture at T12 as well as spinal stenosis in the lumbar region. Compression fracture of T12 vertebra Dementia Depression Diet-controlled type 2 diabetes mellitus Hemoglobin A1c was 5.1% in September 2018. Gastroes
--- NOTE | 2021-03-04 13:38 | PC.NURSE ---
upon performing CT, patient began speaking coherent sentences. pt able to communicate and answer all questions appropriately. Pt states that during this period of being nonverbal, she can understand staff and what is being asked of her but could not answer. pt able to answer questions. 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
[2021-03-04 13:53] LABS: Glucose Point of Care 98 mg/dl (65-105)
[2021-03-04 14:04] LABS: Basophils Percent Auto 0.8 % (0.2-1.2); Eosinophils Absolute Auto 0.1 K/mm3 (0-0.3); Eosinophils Percent Auto 2.3 % (0-4.4); Hematocrit 35.8 % (37.0-47.0); Hemoglobin 12.5 g/dL (12.0-15.0); Immature Granulocyte Absolute 0.04 K/mm3 (0.00-0.031); Immature Granulocyte Percent A 0.8 % (0-0.5); Lymphocytes Absolute Auto 1.32 K/mm3 (0.9-3.2); Lymphocytes Percent Auto 25.4 % (18.3-44.2); Mean Corpuscular HGB Conc 34.9 g/dl (32-36); Mean Corpuscular Hemoglobin 32.1 pg (26-34); Mean Corpuscular Volume 91.8 fl (80-100); Mean Platelet Volume 9.8 fl (7.4-10.4); Monocytes Absolute Auto 0.5 K/mm3 (0.1-0.6); Neutrophils Absolute Auto 3.2 K/mm3 (1.3-6.7); Neutrophils Percent Auto 60.7 % (45.5-73.1); Platelet Count Result 242 k/mm3 (150-375); Red Cell Distribution Width 11.9 % (11.5-14.5); White Blood Count 5.2 K/mm3 (4.5-10.0)
[2021-03-04 14:16] LABS: Alanine Aminotransferase 15 U/L (4-35); Albumin Level 4.2 g/dL (3.5-5.1); Alkaline Phosphatase 86 U/L (38-126); Anion Gap 8 mmol/L (8-16); Aspartate Amino Transferase 24 U/L (14-36); Bilirubin,Total 1.4 mg/dL (0.2-1.3); Blood Urea Nitrogen 11 mg/dL (7-17); Calcium 9.5 mg/dL (8.4-10.2); Carbon Dioxide 26 mmol/L (22-30); Chloride 94 mmol/L (98-107); Estimated Glomerular Filt Rate > 60; Glucose 101 mg/dL (65-110); Potassium 3.8 mmol/L (3.4-5.0); Sodium 128 mmol/L (137-145)
[2021-03-04 14:28] LABS: Troponin I < 0.012 ng/mL (0.000-0.034)
[2021-03-04 14:34] LABS: INR 1.1; Prothrombin Time 13.8 Seconds (11.1-14.7)
[2021-03-04 14:35] LABS: Partial Thromboplastin Time 30.9 SECONDS (22.3-36.8)
[2021-03-04] MEDS: LACTATED RINGERS 1,000 ML 90 ML IV CONT (16:24)
--- NOTE | 2021-03-04 18:04 | PC.NURSE ---
upon entering room. patient appears slightly confused and attempting to get out of bed. pt re-directed. pt has hx of dementia. MD aware of patient's mental status.
[2021-03-04] MEDS: ASPIRIN 325 MG ENTERIC TABLET PO (18:44)
--- NOTE | 2021-03-04 19:26 | PC.NURSE ---
Pt up to 342 in stretcher with engineering technical specialist.
--- NOTE | 2021-03-04 19:45 | ADMGEN ---
This patient, Elizabeth Noel, was admitted to Medical Room 342-01. Patient/family oriented to hospital policies and general routines including ID bracelet, bed and alarms, visiting hours, pain management, procedures, bathroom and other care routines, personal items, smoking policy, room service/diet, and visiting hours. Information on how to activate the Rapid Response Team has been discussed. Patient/Family are encouraged to report perceived risks to care and to ask questions if they do not understand what they are told or what they should do.
[2021-03-05] VITALS (11 sets, daily range): BP systolic 136–155; BP diastolic 71–74; PULSE 61–102; RESP 12–18; TEMP 35.6–36.9; O2SAT 99–100
--- NOTE | 2021-03-05 00:50 | PM.IMHP ---
H&P: HPI History of Present Illness Date/Time: 03/04/21 1847 this is an 85-year-old female patient who has a history of dementia. She is from [facility]. The patient is somewhat forgetful but is easily re orientated. The patient became nonverbal today at the prison for approximately 1 hour prior to arrival. The patient had been complaining of a headache when she was eating lunch at the prison. So they took her back to her room and she suddenly became nonverbal and was not following commands. She does have history of Friedman's palsy so she has a facial droop on the left. This is chronic. The patient did not have any focal weakness today. No fever chills. No chest pain. No nausea vomiting or diarrhea. She has had a past medical history of having a similar episode about a year ago. She had a full workup including an MRI of her brain at that time. Chest x-ray was read as mild ill-defined bilateral edema or pneumonia. Mild cardiomegaly. Head and neck CTA was read as age indeterminate left thalamic lacunar infarction. Bilateral carotid bulb 0% stenosis. Micro angiographic and atrophy. Once the patient was in the emergency room she was back to her baseline. The patient was given an aspirin in the emergency room. The patient is being admitted to observation status on date of service of 03/04/2021 Chief Complaint: Altered mental status Review of Systems Review of Systems: All systems reviewed & are unremarkable except as noted in HPI and below Constitutional: Constitutional: Reports as per HPI and Reports no additional constitutional complaints Eyes: Eyes: Reports as per HPI and Reports no additional eye complaints ENT: Reports system reviewed and no additional complaints, except as documented and Reports Normal hearing present Cardiovascular: Cardiovascular: Reports no additional cardiovascular complaints Respiratory: Respiratory: Reports no additional respiratory complaints and Reports no additional respiratory complaints Gastrointestinal: Gastrointestinal: Reports as per HPI and Reports no additional gastrointestinal complaints Musculoskeletal: Musculoskeletal: Reports no additional musculoskeletal complaints Integumentary/Breasts: Skin/Breast: Reports system reviewed and no additional complaints, except as docu and Reports as per HPI Neurologic: Reports system reviewed and no additional complaints, except as documented, Reports as per HPI and Reports Normal hearing present Psychiatric: Psychiatric: Reports no additional psychiatric complaints and Reports as per HPI Endocrine: Endocrine: Reports no additional endocrine complaints Hematologic/Lymphatic: Hematologic/Lymphatic: Reports no additional hematologic/lymphatic complaints Allergic/Immunologic: Allergic/Immunologic: Reports no additional allergic/immunologic complaints [facility] Past Medical History Medical History (Updated 03/05/21 @ 01:07 by Genie Ibrahim NP) Anxiety 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 Compression fracture of T12 vertebra Dementia Depression Diet-controlled type 2 diabetes mellitus Hemoglobin A1c was 5.1% in September 2018. 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 Hypertension Osteoarthritis Peripheral neuropathy Spinal stenosis of lumbar region Surgical History Surgical History (Updated 03/05/21 @ 00:56 by Genie Ibrahim NP) History of left knee replacement History of total right knee replacement Family History Family History (Updated 03/05/21 @ 00:58 by Genie Ibrahim NP) Unknown Family history unknown Other Hypertension Social History Social History Social History: Lives in assisted living at [facility]. She is and has 4 children. 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 No alcohol, tobacco, or illicit sub
[2021-03-05] MEDS: METOPROLOL TARTRATE 50 MG TAB PO ×2 (08:54→20:23)
[2021-03-05] MEDS: GABAPENTIN 300 MG CAPSULE PO ×3 (08:54→17:14)
[2021-03-05] MEDS: CHOLECALCIFEROL 1,000 UNITS TABLET 5000 UNITS PO (08:54)
[2021-03-05] MEDS: hydroCHLOROthiazide 12.5 MG CAPSULE PO (08:54)
[2021-03-05] MEDS: LOSARTAN POTASSIUM 100 MG TABLET PO (08:54)
[2021-03-05] MEDS: VENLAFAXINE HCL 37.5 MG TABLET PO (08:55)
[2021-03-05] MEDS: ASPIRIN 325 MG ENTERIC TABLET PO (08:55)
[2021-03-05] MEDS: DOCUSATE SODIUM 100 MG CAPSULE PO (08:55)
[2021-03-05] MEDS: CELECOXIB 200 MG CAPSULE PO (08:55)
--- NOTE | 2021-03-05 12:02 | WPDNEURCNPN ---
Assessment and Plan Additional Plan 1. TIA 2. Hypertension plan is to evaluate completely before final recommendations are made Consult date: 03/05/21 HPI: Elizabeth Noel is a 85 year old female admitted to the hospital with the ongoing history of dementia on transfer from the ED in [facility] with increasing disorientation and also with information that patient became nonverbal at the retirement [id number] prior to the arrival and had been complaining of headache previously additionally patient does have a history of Friedman's palsy with facial droop on the left side which is chronic in nature recently she has had the MRI of the brain today x-ray chest was with mild ill-defined bilateral edema versus pneumonia and mild cardiomegaly and head and neck CTA was negative except the left thalamic lacunar infarct with bilateral carotid bulb stenosis 0%, the new MRIs pending the old MRI in 2019 was with mild to moderate nonspecific white matter disease involving the pontine as well, routine labs sodium of 128. 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 Compression fracture of T12 vertebra Dementia Depression Diet-controlled type 2 diabetes mellitus Hemoglobin A1c was 5.1% in September 2018. 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 Hypertension Osteoarthritis Peripheral neuropathy Spinal stenosis of lumbar region Surgical History Surgical History History of left knee replacement History of total right knee replacement Family History Family History Unknown Family history unknown Other Hypertension Social History Social History Social History: Lives in assisted living at [facility]. She is and has 4 children. 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 No alcohol, tobacco, or illicit substance use. aMriusz Omalley (son) is her surrogate decision maker and she is listed as a full code. Smoking status: Never smoker Second hand tobacco smoke exposure: No Alcohol intake: never Substance use: never Substance use type: does not use Gender identity (if verbalized by the patient): Female Sexual Orientation (if Verbalized by the Patient): Straight or Heterosexual Spiritual care concerns: No Meds Home Medications and Allergies Home Medications Medication Instructions Recorded Confirmed Type tramadol 50 mg tablet 50 mg PO Q8H PRN #30 tablet 12/14/20 03/04/21 Rx metoprolol tartrate 50 mg tablet 50 mg PO Q12H #90 tablet 01/28/21 03/04/21 Rx hydrochlorothiazide 12.5 mg tablet 12.5 mg PO DAILY #90 tablet 01/30/21 03/04/21 Rx losartan 100 mg tablet 100 mg PO DAILY #90 tablet 02/02/21 03/04/21 Rx Colace 100 mg PO DAILY 03/04/21 03/04/21 History Effexor 37.5 mg PO DAILY 03/04/21 03/04/21 History celecoxib 200 mg PO DAILY 03/04/21 03/04/21 History cholecalciferol (vitamin D3) 125 mcg PO DAILY 03/04/21 03/04/21 History gabapentin 300 mg PO TID 03/04/21 03/04/21 History Allergies Allergy/AdvReac Type Severity Reaction Status Date / Time isoniazid Allergy Severe SYNCOPE Verified 03/04/21 19:50 meperidine Allergy Mild hives Verified 03/04/21 19:50 morphine Allergy Mild confusion Verified 03/04/21 19:50 Vital Signs Vital Signs - 24 hr 03/04/21 13:03 03/04/21 13:04 03/04/21 13:19 Temperature 37.2 C Pulse Rate 89 73 82 Respiratory Rate 18 Blood Pressure 159/8
--- NOTE | 2021-03-05 13:27 | PM.IMPN ---
Progress Note: A&P Assessment and Plan (1) Friedman's palsy: Code(s): G51.0 - Friedman's palsy Status: Chronic Assessment and Plan: Chronic (2) TIA (transient ischemic attack): Code(s): G45.9 - Transient cerebral ischemic attack, unspecified Status: Acute Assessment and Plan: Patient started on daily aspirin. Neurology consult was greatly be appreciated. Pt has MRI an echo and carotids ordered. CT showed - 1. No acute intracranial process. 2. Small old lacunar infarct at the left frontal lobe centrum semiovale. 3. Age-related changes including mild diffuse volume loss and moderate scattered white matter hypoattenuation consistent with chronic small vessel ischemic disease. Seen by neurology Continue PT/ OT (3) HTN (hypertension): Code(s): I10 - Essential (primary) hypertension Status: Acute Assessment and Plan: BP is 136/72 good - Can continue with hydrochlorothiazide, metoprolol, and losartan (4) Spinal stenosis of lumbar region with neurogenic claudication: Code(s): M48.062 - Spinal stenosis, lumbar region with neurogenic claudication Status: Chronic Assessment and Plan: Pain control (5) Traumatic compression fracture of T12 thoracic vertebra: Code(s): S22.080A - Wedge compression fracture of T11-T12 vertebra, initial encounter for closed fracture Status: Acute Assessment and Plan: Continue with gabapentin and she takes Ultram Subjective Date/time seen: 03/05/21 13:27 Interval history: 85-year-old female patient who has a history of dementia. She is from [facility]. The patient is somewhat forgetful but is easily re orientated. The patient became nonverbal today at the custodial for approximately 1 hour prior to arrival. The patient had been complaining of a headache when she was eating lunch at the custodial. Awaiting work up for stroke. Pt has history of chronic Bellpalsy- chronic back pain, dementia, depression, GERD, hypertension, peripheral neuropathy, with spinal stenosis. Pt seen by neurology today.Pt complains of generalised weakness but appears forgetful and inconsistent with her thoughts Review of Systems Review of Systems: All systems reviewed & are unremarkable except as noted in HPI and below Exam Narrative: Chronically ill appearing elderly with [place] palsy Const: General: No in distress Orientation/consciousness: oriented to person Resp: Effort & Inspection: no respiratory distress Auscultation: no rhonchi and no wheezes Cardio: Rate: regular rate Rhythm: regular rhythm GI: Inspection: normal to inspection GI Palp: No abdominal tenderness, No Guarding due to palpation present (GI) and No Hepatomegaly present Auscultation: normal bowel sounds Neuro: General: other (forgetful inconstitent ) Extrem: Other: Generalised weakness Objective Data Vital Signs Vital Signs: Vital Signs - 24 hr 03/04/21 15:37 03/04/21 15:45 03/04/21 15:46 Temperature Pulse Rate 85 88 88 Respiratory Rate Blood Pressure 167/101 H Pulse Oximetry 100 100 100 03/04/21 16:00 03/04/21 16:01 03/04/21 17:09 Temperature Pulse Rate 92 91 Respiratory Rate Blood Pressure 183/103 H Pulse Oximetry 100 100 99 03/04/21 17:10 03/04/21 17:20 03/04/21 17:30 Temperature Pulse Rate 98 101 H 99 Respiratory Rate Blood Pressure 130/104 H Pulse Oximetry 100 99 100 03/04/21 17:31 03/04/21 17:49 03/04/21 18:00 Temperature Pulse Rate 98 108 H 95 Respiratory Rate Blood Pressure 118/107 H Pulse Oximetry 98 03/04/21 18:01 03/04/21 18:15 03/04/21 18:16 Temperature Pulse Rate 101 H 103 H 97 Respiratory Rate Blood Pressure 144/104 H 154/87 H Pulse Oximetry 90 97 03/04/21 18:30 03/04/21 18:31 03/04/21 18:53 Temperature Pulse Rate 102 H 103 H 101 H Respiratory Rate 16 Blood Pressure 154/87 H Pulse Oximetry 99 100 99 03/04/21 20:11 03/05/21 00:00
[2021-03-06] VITALS (11 sets, daily range): BP systolic 144–165; BP diastolic 79–89; PULSE 58–90; RESP 16–18; TEMP 36.2–36.6; O2SAT 97–100
--- NOTE | 2021-03-06 | ECHO_ITS ---
Patient Info Name: Elizabeth Noel Age: 85 years : 1935 Gender: Female Ht: 66 in Wt: 193 lbs BSA: 2.05 m2 HR: 74 bpm BP: 144 / 79 mmHg Technical Quality: Fair Exam Date: 03/06/2021 10:05 AM Exam Location: [facility] Room: 342 Patient Status: Inpatient Admit Date: 03/04/2021 Staff Ordering Physician: Genie Ibrahim NP Apprentice Painter Brush: Maricel Almaraz RDCS Attending Provider: Sonam Rodriguez PA-C Referring Physician: Alexandria DINERO; Exam Type: CA echo doppler color flow Study Info Indications - TIA Complete two-dimensional, color flow and Doppler transthoracic echocardiogram is performed. Summary 1. Complete two-dimensional, color flow and Doppler transthoracic echocardiogram is performed. 2. Left ventricular chamber dimension is normal. 3. Left ventricular systolic function is normal, estimated at 60-65%. 4. The left ventricular diastolic function is grade I diastolic dysfunction. 5. E/e' 13 is mildly elevated. 6. Left atrial chamber dimension is mildly enlarged. 7. The mitral valve has mildly calcified annulus. 8. There is mild mitral valve regurgitation. 9. There is mild tricuspid valve regurgitation. 10. No pulmonary hypertension, estimated pulmonary arterial systolic pressure is 27 mmHg. 11. There is mild pulmonic regurgitation. Left Ventricle E/e' 13 is mildly elevated. Left ventricular chamber dimension is normal. Left ventricular systolic function is normal, estimated at 60-65%. The left ventricular diastolic function is grade I diastolic dysfunction. Right Ventricle Right ventricular chamber dimension is normal. Right ventricular systolic function is normal. Left Atria Left atrial chamber dimension is mildly enlarged. Right Atria Right atrial chamber dimension is normal. Aortic Valve The aortic valve is trileaflet. There is no aortic valve stenosis. There is no aortic valve regurgitation. Pulmonic Valve There is mild pulmonic regurgitation. Mitral Valve The mitral valve has mildly calcified annulus. There is no mitral valve stenosis. There is mild mitral valve regurgitation. Tricuspid Valve There is mild tricuspid valve regurgitation. No pulmonary hypertension, estimated pulmonary arterial systolic pressure is 27 mmHg. Pericardium/Pleural There is no pericardial effusion. Inferior Vena Cava Normal inferior vena cava with >50% collapse upon inspiration consistent with normal right atrial pressure, 5 mmHg. Aorta The aortic root size at the sinus of Valsalva is normal. Left Ventricular Outflow Tract Name Value Normal LVOT 2D LVOT Diameter 2.0 cm LVOT Doppler LVOT Peak Gradient 3 mmHg LVOT Mean Gradient 1 mmHg LVOT VTI 19 cm LVOT VTI/AV VTI Ratio 0.9 LVOT Stroke Volume 61 ml LVOT CO 10.2 l/min LVOT CI 5.0 l/min/m2 Pulmonic Valve
[2021-03-06 05:43] LABS: Basophils Percent Auto 0.5 % (0.2-1.2); Eosinophils Absolute Auto 0.2 K/mm3 (0-0.3); Eosinophils Percent Auto 3.4 % (0-4.4); Hematocrit 35.1 % (37.0-47.0); Hemoglobin 12.3 g/dL (12.0-15.0); Immature Granulocyte Absolute 0.03 K/mm3 (0.00-0.031); Immature Granulocyte Percent A 0.5 % (0-0.5); Lymphocytes Absolute Auto 1.76 K/mm3 (0.9-3.2); Lymphocytes Percent Auto 28.6 % (18.3-44.2); Mean Corpuscular Hemoglobin 31.7 pg (26-34); Mean Corpuscular Volume 90.5 fl (80-100); Monocytes Absolute Auto 0.6 K/mm3 (0.1-0.6); Monocytes Percent Auto 9.9 % (2.6-8.5); Neutrophils Absolute Auto 3.5 K/mm3 (1.3-6.7); Neutrophils Percent Auto 57.1 % (45.5-73.1); Platelet Count Result 227 k/mm3 (150-375); Red Blood Count 3.88 M/mm3 (4.2-5.4); Red Cell Distribution Width 11.6 % (11.5-14.5); White Blood Count 6.2 K/mm3 (4.5-10.0)
[2021-03-06 05:56] LABS: Alanine Aminotransferase 14 U/L (4-35); Alkaline Phosphatase 62 U/L (38-126); Anion Gap 6 mmol/L (8-16); Aspartate Amino Transferase 24 U/L (14-36); Bilirubin,Total 1.7 mg/dL (0.2-1.3); Blood Urea Nitrogen 11 mg/dL (7-17); CRP < 0.5 mg/dL (<1.0); Calcium 9.2 mg/dL (8.4-10.2); Carbon Dioxide 28 mmol/L (22-30); Chloride 94 mmol/L (98-107); Estimated CRCL calculation 50 ml/min; Estimated Glomerular Filt Rate > 60; Glucose 103 mg/dL (65-110); Lactate Dehydrogenase 451 U/L (313-618); Magnesium 1.4 mg/dL (1.6-2.3); Potassium 3.7 mmol/L (3.4-5.0); Sodium 128 mmol/L (137-145)
[2021-03-06] MEDS: METOPROLOL TARTRATE 50 MG TAB PO ×2 (08:41→20:15)
[2021-03-06] MEDS: hydroCHLOROthiazide 12.5 MG CAPSULE PO (08:41)
[2021-03-06] MEDS: VENLAFAXINE HCL 37.5 MG TABLET PO (08:41)
[2021-03-06] MEDS: LOSARTAN POTASSIUM 100 MG TABLET PO (08:41)
[2021-03-06] MEDS: GABAPENTIN 300 MG CAPSULE PO ×3 (08:41→16:40)
[2021-03-06] MEDS: CELECOXIB 200 MG CAPSULE PO (08:41)
[2021-03-06] MEDS: DOCUSATE SODIUM 100 MG CAPSULE PO (08:41)
[2021-03-06] MEDS: CHOLECALCIFEROL 1,000 UNITS TABLET 5000 UNITS PO (08:41)
[2021-03-06] MEDS: ASPIRIN 325 MG ENTERIC TABLET PO (08:41)
--- NOTE | 2021-03-06 15:46 | PM.IMPN ---
Progress Note: A&P Assessment and Plan (1) TIA (transient ischemic attack): Code(s): G45.9 - Transient cerebral ischemic attack, unspecified Status: Acute Assessment and Plan: Presented from half-way following sudden onset of nonverbal episode. She does have a history of TIA. Head/neck CTA showed age-indeterminate left thalamic lacunar infarction with 0% stenosis of bilateral carotid bulbs MRI showed interval development of several punctate old left lacunar infarctions with no acute findings Carotid Dopplers with no evident plaque or stenosis of the bilateral internal carotid arteries Echo reviewed with normal EF, no significant valvular disease. Bubble study from 2019 showed intact interatrial septum Appreciate neurology consultation. Discussed with neurologist, findings felt to be most consistent with TIA She has been initiated on aspirin. Continue. Check updated A1c Continue with blood pressure control Appreciate PT/OT evals (2) HTN (hypertension): Code(s): I10 - Essential (primary) hypertension Status: Acute Assessment and Plan: Blood pressure reviewed and has been fluctuant. Initially elevated at presentation but has improved. BP this morning 144/79. Continue metoprolol and losartan. Hold hydrochlorothiazide given hyponatremia. Continue to monitor blood pressure trends adjust medication regimen as needed. (3) Hyponatremia: Code(s): E87.1 - Hypo-osmolality and hyponatremia Status: Acute Assessment and Plan: Sodium low this admission at 128. Hold HCTZ. Repeat BMP tomorrow. (4) Hypomagnesemia: Code(s): E83.42 - Hypomagnesemia Status: Acute Assessment and Plan: Magnesium 1.4. Administer 2 g IV magnesium sulfate. Repeat Mag tomorrow morning Subjective Date/time seen: 03/06/21 15:46 Interval history: Date of service: 03/06/2021 Elizabeth Noel is an 85 year old female with a history of diabetes mellitus, hypertension, chronic Friedman's palsy, dementia, and depression who is seen in follow up for TIA. Given her dementia, she is somewhat of a poor historian. She denies numbness or tingling in her extremities. She denies speech changes. She denies dysphagia. I am unable to obtain any further history as she got off topic with answering questions. I did have a long conversation with her son/POA via phone to provide updates and answer questions. He is eager for her to be discharged home. Review of Systems Review of Systems: TERE carrilloobtainable: Yes unobtainable due to mental status Exam Narrative: Ms. Noel is a well-nourished, well-appearing 85-year-old female who is lying supine in bed. She appears comfortable and is in NARD. Neuro: awake, alert and oriented to self only, speech slow, often off topic. CN II-XII intact, strength 5/5 throughout, sensation intact, no pronator drift, bilateral call worker strength equal, able to perform rapid alternating movements, able to perform finger to nose HEENMT: normocephalic, atraumatic, EOMI, sclerae anicteric, moist oral mucosa, tongue midline Neck: supple, no lymphadenopathy Respiratory: clear to auscultation bilaterally, nonlabored breathing Cardio: regular rate, regular rhythm with S1-S2 Abdomen: nondistended, normoactive bowel sounds, soft, nontender to palpation Extremities: no edema, erythema, or tenderness to palpation, DP pulses 2+ bilaterally Skin: no rashes or lesions, warm and dry Psych: appropriate mood and affect, judgment and insight fair Objective Data Vital Signs Vital Signs: Vital Signs - 24 hr 03/05/21 16:00 03/05/21 19:20 03/05/21 20:00 Temperature 97 F L Pulse Rate 64 61 68 Respiratory Rate 17 Blood Pressure 150/74 H Pulse Oximetry 100 03/05/21 20:23 03/06/21 00:00 03/06/21 04:00 Temperature Pulse Rate 100 59 L 58 L Respiratory Rate Blood Pressure Pulse Oximetry 03/06/21 04:09 03/06/21 08:00 03/06/21 08:41 Temperat
[2021-03-06] MEDS: MAGNESIUM SULF 2 GM/WATER 50ML 2 GM/50 ML BAG IVPB (16:40)
[2021-03-07] VITALS: PULSE 61
[2021-03-07 04:00] VITALS: PULSE 60
[2021-03-07 06:00] VITALS: BP 159/70; PULSE 62; RESP 16; TEMP 36.6; O2SAT 100
[2021-03-07 06:08] LABS: Creatinine Urine 66.5 mg/dL
[2021-03-07 06:09] LABS: Sodium Urine Random 150 meq/L
[2021-03-07 06:18] LABS: Hematocrit 34.9 % (37.0-47.0); Hemoglobin 12.3 g/dL (12.0-15.0)
[2021-03-07 06:39] LABS: Anion Gap 6 mmol/L (8-16); Blood Urea Nitrogen 12 mg/dL (7-17); Calcium 9.2 mg/dL (8.4-10.2); Carbon Dioxide 27 mmol/L (22-30); Chloride 92 mmol/L (98-107); Estimated CRCL calculation 45 ml/min; Estimated Glomerular Filt Rate > 60; Glucose 99 mg/dL (65-110); Magnesium 1.7 mg/dL (1.6-2.3); Potassium 3.8 mmol/L (3.4-5.0); Sodium 125 mmol/L (137-145)
[2021-03-07 08:00] VITALS: PULSE 74
[2021-03-07] MEDS: CHOLECALCIFEROL 1,000 UNITS TABLET 5000 UNITS PO (08:06)
[2021-03-07 08:07] VITALS: PULSE 60
[2021-03-07] MEDS: CELECOXIB 200 MG CAPSULE PO (08:07)
[2021-03-07] MEDS: METOPROLOL TARTRATE 50 MG TAB PO (08:07)
[2021-03-07] MEDS: LOSARTAN POTASSIUM 100 MG TABLET PO (08:07)
[2021-03-07] MEDS: VENLAFAXINE HCL 37.5 MG TABLET PO (08:07)
[2021-03-07] MEDS: DOCUSATE SODIUM 100 MG CAPSULE PO (08:08)
[2021-03-07] MEDS: ASPIRIN 325 MG ENTERIC TABLET PO (08:08)
[2021-03-07] MEDS: GABAPENTIN 300 MG CAPSULE PO ×3 (08:08→16:38)
[2021-03-07 09:00] LABS: Hemoglobin A1C 5.2 % (<5.7)
[2021-03-07 13:44] LABS: Sodium 130 mmol/L (137-145)
[2021-03-07 14:00] VITALS: BP 139/85; PULSE 65; RESP 16; TEMP 36.3; O2SAT 100
--- NOTE | 2021-03-07 16:31 | PM.DS ---
DS: Admitting Diagnosis Discharge Date 03/07/2021 Admitting Diagnosis TIA DS: Discharge Diagnosis Discharge Diagnosis (1) TIA (transient ischemic attack): Code(s): G45.9 - Transient cerebral ischemic attack, unspecified Status: Acute Assessment and Plan: Presented from intermediate following sudden onset of nonverbal episode. She does have a history of TIA. Head/neck CTA showed age-indeterminate left thalamic lacunar infarction with 0% stenosis of bilateral carotid bulbs MRI showed interval development of several punctate old left lacunar infarctions with no acute findings Carotid Dopplers with no evident plaque or stenosis of the bilateral internal carotid arteries Echo reviewed with normal EF, no significant valvular disease. Bubble study from 2019 showed intact interatrial septum She was seen in consultation by Neurology. I discussed the case with neurologist who believe findings felt to be most consistent with TIA. She was started on daily aspirin 81 mg. Evaluated by PT/OT. She is in assisted living. (2) HTN (hypertension): Code(s): I10 - Essential (primary) hypertension Status: Acute Assessment and Plan: Blood pressure reviewed and has been fluctuant. Initially elevated at presentation but improved. Continue metoprolol and losartan. Hydrochlorothiazide discontinued given hyponatremia. Encourage monitoring of blood pressure facility to maintain good BP control to reduce risk for stroke. (3) Hyponatremia: Code(s): E87.1 - Hypo-osmolality and hyponatremia Status: Acute Assessment and Plan: Sodium decreased to 125. HCTZ was discontinued. 1500 cc fluid restriction initiated and sodium levels improved. Repeat BMP in 1 week to monitor sodium. Discussed with patient's son/POA who notes this is a chronic issue. (4) Hypomagnesemia: Code(s): E83.42 - Hypomagnesemia Status: Acute Assessment and Plan: Magnesium was low and was supplemented with improvement. Begin 400 mg p.o. magnesium oxide daily and repeat Mag levels in 1 week (5) Dementia: Code(s): F03.90 - Unspecified dementia without behavioral disturbance Status: Acute Assessment and Plan: At baseline. DS: Summary Hospital Course Hospital Course: Date of admission: 03/04/2021 Date of discharge: 03/07/2021 Elizabeth Noel is an 85 year old female with a history of diabetes mellitus, hypertension, chronic Friedman's palsy, dementia, and depression who presented to the emergency department on 03/04/2021 after a nonverbal episode at her intermediate. On presentation to the emergency department, her BP was slightly elevated at 150 9/88 with additional vital signs stable, CBC unremarkable, sodium 128, additional electrolytes stable, and head/neck CTA showed age indeterminate left thalamic lacunar infarct. She was admitted to the hospitalist service for further evaluation and management and was seen in consultation by Neurology. Please see above for further details. Overall clinical picture felt to be consistent with TIA. Aspirin initiated and lifestyle modifications discussed. The patient was feeling much better and was eager for discharge. Given her overall improvement, she was determined to no longer require inpatient care and was discharged in hemodynamically stable condition on 03/07/2021. Discussed hospital course with the patient's son via phone and answered all of his questions to his satisfaction. Status at Discharge Overall status at discharge: patient is progressing back to baseline Time Spent with Patient Time attestation: Total time spent providing and/or coordinating discharge services: 45 minutes Time spent: Greater than 30 minutes Exam Narrative: Ms. Noel is a well-nourished, well-appearing 85-year-old female who is lying supine in bed. She appears comfortable and is in NARD. Neuro: awake, alert and oriented to self only. Does not an
[2021-03-07 17:03] LABS: EDCOVIDSCREEN Negative (Negative)
--- NOTE | 2021-03-07 17:29 | PCCCNOTE ---
Called from medical floor, patient has a dc order. Bedside RN Nancy states she has read cc note but unsure if they are prepared for dc at facility. Covid swab negative. Called to [facility] spoke with RN and advised that patient is discharging. Covid negative. Would like it faxed to [phone]. Called to floor spoke w/ Tennille engel RN, advised that [facility] has been notified and covide test has been faxed. She states that son will provide transportation.
[2021-03-07 18:10] LABS: Urea Random Urine 581 MG/DL
== END 2021-03-07 17:34 ==
LOC: ANHED 16:01 → ANH3MED 19:51 → ANH3MEDSUR 03-08 11:36
PROVIDERS: Nurse Practitioner; Admitting Provider Internal Medicine; Emergency Provider Emergency Medicine; PCP Family Medicine; Visit Provider Physician Assistant
DX: G45.9 Transient cerebral ischemic attack, unspecified (principal); R41.82 Altered mental status, unspecified; F03.90 Unspecified dementia, unspecified severity, without behavioral disturbance, psychotic disturbance, mood disturbance, and anxiety; G51.0 Bell's palsy; E11.9 Type 2 diabetes mellitus without complications; I10 Essential (primary) hypertension; Z86.73 Personal history of transient ischemic attack (TIA), and cerebral infarction without residual deficits; E87.1 Hypo-osmolality and hyponatremia; E83.42 Hypomagnesemia; Z20.822 Contact with and (suspected) exposure to COVID-19
CPT/HCPCS: 36415; 70496; 70498; 70553; 71045; 80048; 80053; 82570; 82948; 83036; 83615; 83735; 84295; 84300; 84443; 84484; 84540; 85014; 85018; 85025; 85610; 85730; 86140; 87426; 93005; 93306; 93880; 96360; 96361; 96374; 97110; 97161; 97165; 97535; 99285; A9270; A9577; C9803; G0378; J3475; J7120; Q9967

== ENCOUNTER 2021-03-25 09:27 | Emergency (ER) | payer MEDICARE, SELFPAY ==
--- NOTE | ~2021-03-25 | XR_ITS ---
EXAMINATION: XR chest 2V DATE: 03/25/2021 10:53 INDICATION: Weakness and confusion TECHNIQUE: AP and lateral views of the chest are obtained. COMPARISON: 03/04/2021 FINDINGS: There are minimal airspace opacities of the lung bases. Small pleural effusions are present . There is no pneumothorax. The heart size is upper limits of normal for technique. There is moderate thoracic spondylosis. Osteoarthritis is noted in the shoulders. IMPRESSION: 1. Minimal bibasilar airspace opacities, consistent with atelectasis versus pneumonia versus pulmonar y edema. 2. Small pleural effusions. Reviewed, dictated and finalized at location A. ET JOURNEYMAN IMPRESSION: 1. Minimal bibasilar airspace opacities, consistent with atelectasis versus pne umonia versus pulmonary edema. 2. Small pleural effusions.
--- NOTE | ~2021-03-25 | CT_ITS ---
EXAMINATION: CT brain wo con INDICATION: Weakness and confusion COMPARISON: 03/04/2021 TECHNIQUE: Standard unenhanced head CT. The dose-length product (DLP) was 605.33 mGy-cm. The mA was a djusted according to patient size. Iterative reconstruction technique was employed. FINDINGS: There is no acute intraparenchymal hemorrhage. No evidence of mass lesion. No evidence of a cute infarction. An old lacunar infarct is noted in the left thalamus. There is moderate periventricu lar and subcortical hypodensity probably related to small vessel ischemic disease. There is moderate prominence of the sulci and ventricles related to cerebral atrophy. Intracranial calcified cerebral a therosclerosis is noted. There are no extra-axial collections. There is no mass effect or midline ale ft. Changes in the globes are likely from ocular lens surgery. There is mild mucosal thickening of th e paranasal sinuses. IMPRESSION: 1. No acute intracranial abnormality. 2. Age related findings. Reviewed, dictated and finalized at location A. Y POLISHER
[2021-03-25 09:34] VITALS: BP 145/84; PULSE 69; RESP 15; TEMP 36.7; O2SAT 100
[2021-03-25 09:43] LABS: Glucose Point of Care 128 mg/dl (65-105)
--- NOTE | 2021-03-25 09:52 | ECG_ITS ---
Measurements Intervals [place] Rate: 69 P: 11 VT: 201 QRS: -22 QRSD: 81 T: -13 QT: 385 QTc: 413 Interpretive Statements SINUS RHYTHM BORDERLINE AV CONDUCTION DELAY VOLTAGE CRITERIA FOR LVH BORDERLINE R WAVE PROGRESSION, ANTERIOR LEADS BORDERLINE T WAVE ABNORMALITY- ANTEROLAT/INF LEADS BORDERLINE ECG Electronically Signed On 03-25-2021 16:59:54 BRIAR WOOD SORTER by Angel Goddard D.O.
[2021-03-25 10:07] LABS: Basophils Percent Auto 0.4 % (0.2-1.2); Eosinophils Absolute Auto 0.1 K/mm3 (0-0.3); Eosinophils Percent Auto 2.6 % (0-4.4); Hematocrit 35.8 % (37.0-47.0); Immature Granulocyte Absolute 0.02 K/mm3 (0.00-0.031); Immature Granulocyte Percent A 0.4 % (0-0.5); Lymphocytes Absolute Auto 1.02 K/mm3 (0.9-3.2); Lymphocytes Percent Auto 20.8 % (18.3-44.2); Mean Corpuscular HGB Conc 33.5 g/dl (32-36); Mean Corpuscular Hemoglobin 31.8 pg (26-34); Monocytes Absolute Auto 0.4 K/mm3 (0.1-0.6); Monocytes Percent Auto 7.9 % (2.6-8.5); Neutrophils Absolute Auto 3.3 K/mm3 (1.3-6.7); Neutrophils Percent Auto 67.9 % (45.5-73.1); Platelet Count Result 228 k/mm3 (150-375); Red Blood Count 3.77 M/mm3 (4.2-5.4); Red Cell Distribution Width 12.2 % (11.5-14.5); White Blood Count 4.9 K/mm3 (4.5-10.0)
[2021-03-25 10:17] LABS: Alanine Aminotransferase 16 U/L (4-35); Albumin Level 4.1 g/dL (3.5-5.1); Alkaline Phosphatase 64 U/L (38-126); Anion Gap 9 mmol/L (8-16); Aspartate Amino Transferase 24 U/L (14-36); Bilirubin,Total 1.5 mg/dL (0.2-1.3); Blood Urea Nitrogen 11 mg/dL (7-17); Calcium 9.5 mg/dL (8.4-10.2); Carbon Dioxide 24 mmol/L (22-30); Chloride 105 mmol/L (98-107); Estimated Glomerular Filt Rate 57; Glucose 137 mg/dL (65-110); Sodium 138 mmol/L (137-145)
[2021-03-25 10:23] LABS: INR 1.1; Prothrombin Time 13.9 Seconds (11.1-14.7)
[2021-03-25 10:30] VITALS: BP 145/88; PULSE 70; RESP 14; O2SAT 100
--- NOTE | 2021-03-25 11:15 | PC.NURSE ---
RN to bedside to straight cath patient, pt in CT.
--- NOTE | 2021-03-25 11:29 | ED.AMS ---
HPI - Altered Mental Status General Chief Complaint: Altered Mental Status Stated Complaint: Poss CVA Time Seen by Provider: 03/25/21 10:40 Source: patient and EMS Mode of arrival: EMS Limitations: dementia History of Present Illness HPI narrative: This is an 85-year-old female that presents to the emergency department for increased confusion from intermediate. Reportedly patient does have history of dementia and Friedman's palsy with continued left-sided facial droop. At the intermediate they noted that she was a little bit more confused than usual. Patient is alert and oriented to self. She does follow commands. Able to answer some questions appropriately. No complaints at this time. Related Data Allergies Allergy/AdvReac Type Severity Reaction Status Date / Time isoniazid Allergy Severe SYNCOPE Verified 03/17/21 11:07 meperidine Allergy Mild hives Verified 03/17/21 11:07 morphine Allergy Mild confusion Verified 03/17/21 11:07 Review of Systems Review of Systems: CONSTITUTIONAL: Denies fever CARDIOVASCULAR: Denies chest pain RESPIRATORY: Denies dyspnea. GASTROINTESTINAL: Denies abdominal pain, nausea, vomiting GENITOURINARY: Denies dysuria NEUROLOGIC: Denies numbness, or weakness. All systems reviewed & are unremarkable except as noted in HPI and below PMFSH Past Medical History Medical History Anxiety 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 Compression fracture of T12 vertebra Dementia Depression Diet-controlled type 2 diabetes mellitus Hemoglobin A1c was 5.1% in September 2018. 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 Hypertension Osteoarthritis Peripheral neuropathy Spinal stenosis of lumbar region Surgical History Surgical History History of left knee replacement History of total right knee replacement Family History Family History Unknown Family history unknown Other Hypertension Social History Social History Social History: Lives in assisted living at [facility]. She is and has 4 children. 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 No alcohol, tobacco, or illicit substance use. Mariusz Omalley (son) is her surrogate decision maker and she is listed as a full code. Smoking status: Never smoker Second hand tobacco smoke exposure: No Alcohol intake: never Substance use: never Substance use type: does not use Gender identity (if verbalized by the patient): Female Sexual Orientation (if Verbalized by the Patient): Straight or Heterosexual Spiritual care concerns: No Exam Narrative: GENERAL: Elderly, well-nourished, and in no acute distress. HEAD: Normocephalic, atraumatic. EYES: PERRLA and EOMI. ENT: Nares clear, no rhinorrhea or epistaxis. Mucous membranes moist. Oropharynx without tonsillar hypertrophy exudate or other lesions. Bilateral TMs pearly nick non-bulging NECK: Supple. No adenopathy or masses. CHEST: Clear to auscultation. No respiratory distress. No wheezes rales or rhonchi HEART: Regular rate and rhythm. No murmur heard. Normal peripheral pulses. ABDOMEN: Soft, nontender, nondistended, normal active bowel sounds. EXTREMITIES: Normal range of motion. No edema. Strength equal in bilateral upper and lower extremities (5/5) SKIN: Warm, dry, no rash. NEURO: Left-sided facial droop noted, otherwise no focal deficits. Alert and oriented x1. PSYCH: Normal mood and affect Course Consultations Consultation #1: Spoke with Dr. Palacios about patient and workup who agrees with discharge back to facility. Would like prescription for duo nebs if needed Date: 03/25/21 Time: 13:00 Vital Signs Vital signs: Vital Signs Temperature 98.0
[2021-03-25 11:30] VITALS: BP 141/83; PULSE 68; RESP 14; O2SAT 100
[2021-03-25 11:42] LABS: Add Urine Microscopic? NO; Appearance Urine Clear (Clear); Bilirubin Urine Negative (Negative); Blood Urine Negative (Negative); Color Urine Yellow (Yellow); Glucose Urine UA Negative (Negative); Ketones Urine Negative (Negative); Leukocyte Esterase Ur Negative LEU/UL (Negative); Nitrate Urine Negative (Negative); Protein Urine Negative (Negative); Specific Grav Ur 1.014 (1.001-1.035); Urobilinogen Urine Negative mg/dL (<2.0)
[2021-03-25 12:30] VITALS: BP 161/94; PULSE 70; RESP 16; O2SAT 99
[2021-03-25 14:31] VITALS: BP 162/86; PULSE 61; RESP 17; O2SAT 98
== END 2021-03-25 14:45 ==
PROVIDERS: Emergency Provider Emergency Medicine; PCP Family Medicine
DX: R40.4 Transient alteration of awareness (principal); F41.9 Anxiety disorder, unspecified; F03.90 Unspecified dementia, unspecified severity, without behavioral disturbance, psychotic disturbance, mood disturbance, and anxiety; E11.42 Type 2 diabetes mellitus with diabetic polyneuropathy; G51.0 Bell's palsy; K21.9 Gastro-esophageal reflux disease without esophagitis; I10 Essential (primary) hypertension; M19.90 Unspecified osteoarthritis, unspecified site; Z96.653 Presence of artificial knee joint, bilateral; F32.A Depression, unspecified; R94.31 Abnormal electrocardiogram [ECG] [EKG]
CPT/HCPCS: 36415; 51701; 70450; 71046; 80053; 81003; 82948; 85025; 85610; 85730; 93005; 99284

== ENCOUNTER 2021-05-08 10:36 | Emergency (ER) | payer MEDICARE, SELFPAY ==
--- NOTE | ~2021-05-08 | CT_ITS ---
EXAMINATION: CT brain wo con DATE: 05/08/2021 11:10 INDICATION: Altered mental status TECHNIQUE: Computed tomography (CT) of the head was performed without intravenous contrast. The dose- length product was 605.33 mGy-cm. Automated exposure control and iterative reconstruction technique w ere employed. COMPARISON: CT dated 03/25/2021 FINDINGS: No acute intracranial hemorrhage, infarction, mass or mass effect. No ventriculomegaly or m idline shift. Basilar cisterns are patent. There are scattered moderate periventricular and subcortic al white matter changes, most likely related to small vessel ischemic disease (microangiopathy). No s ignificant abnormality of the paranasal sinuses and mastoids are pneumatized. There is a chronic left thalamic infarction. IMPRESSION: 1. No acute intracranial abnormality. 2: Chronic age-related findings. 3: Chronic left thalamic infarction. Reviewed, dictated and finalized at location B. N FREIGHT AGENT
--- NOTE | ~2021-05-08 | XR_ITS ---
XR chest 1V portable 05/08/2021 11:02 Indication: Transient alteration of awareness Procedure: AP portable chest Comparison: Comparison to multiple prior studies sequentially, with oldest reviewed study dated 05/2018. Findings: Cardiomegaly. Bibasilar airspace disease. No significant effusion or pneumothorax. No acute osseous abnormality. There is mild osteoarthritis of the shoulders. Impression: 1: Bibasilar airspace disease which may represent atelectasis or pneumonia. Reviewed, dictated and finalized at location B. LY PLANNER Impression: 1: Bibasilar airspace disease which may represent atelectasis or pneumonia.
[2021-05-08 10:38] VITALS: BP 205/105; PULSE 63; RESP 16; TEMP 36.1; O2SAT 100
--- NOTE | 2021-05-08 10:44 | ECG_ITS ---
Measurements Intervals [place] Rate: 63 P: 24 UT: 196 QRS: -22 QRSD: 85 T: -7 QT: 408 QTc: 420 Interpretive Statements SINUS RHYTHM ATRIAL PREMATURE COMPLEX VOLTAGE CRITERIA FOR LVH BORDERLINE R WAVE PROGRESSION, ANTERIOR LEADS BORDERLINE T WAVE ABNORMALITY- ANT/INF LEADS BORDERLINE ECG Electronically Signed On 05-08-2021 11:06:58 PRODUCTION LINE WORKER by Angel Goddard D.O.
[2021-05-08 10:55] LABS: Glucose Point of Care 146 mg/dl (65-105)
--- NOTE | 2021-05-08 11:03 | PC.NURSE ---
Pt. becoming very aggressive and angry over blood work. Pt. currently AOx1 and refusing to answer orientation questions. ERP notified.
--- NOTE | 2021-05-08 11:06 | ED.GENADULT ---
HPI - General Adult General Chief complaint: Altered Mental Status Stated complaint: more confused than normal per ECF staff Time Seen by Provider: 05/08/21 10:39 Source: patient, EMS and RN notes reviewed History of Present Illness HPI narrative: Patient is an 86 y/o female brought in by EMS for altered mental status. She was found to be unresponsive while sitting in a chair. She was reportedly last seen at her baseline around 10:10 AM. EMS reports that patient woke up after they did a sternal rub. Currently patient is awake and somewhat confused. She has no complaint. Related Data Home Medications Medication Instructions Recorded Confirmed clonidine HCl 05/08/21 05/08/21 hydrochlorothiazide 05/08/21 losartan 05/08/21 metoprolol tartrate 05/08/21 sodium chloride mg 05/08/21 tramadol mg 05/08/21 Allergies Allergy/AdvReac Type Severity Reaction Status Date / Time isoniazid Allergy Severe SYNCOPE Verified 05/08/21 10:54 meperidine Allergy Mild hives Verified 05/08/21 10:54 morphine Allergy Mild confusion Verified 05/08/21 10:54 Review of Systems Review of Systems: ROS unobtainable: Yes unobtainable due to mental status PMFSH Past Medical History Medical History Anxiety 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 Compression fracture of T12 vertebra Dementia Depression Diet-controlled type 2 diabetes mellitus Hemoglobin A1c was 5.1% in September 2018. 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 Hypertension Osteoarthritis Peripheral neuropathy Spinal stenosis of lumbar region Surgical History Surgical History History of left knee replacement History of total right knee replacement Family History Family History Unknown Family history unknown Other Hypertension Social History Social History Social History: Lives in assisted living at [facility]. She is and has 4 children. 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 No alcohol, tobacco, or illicit substance use. Mariusz Omalley (son) is her surrogate decision maker and she is listed as a full code. Smoking status: Never smoker Second hand tobacco smoke exposure: No Alcohol intake: never Substance use: never Substance use type: does not use Gender identity (if verbalized by the patient): Female Sexual Orientation (if Verbalized by the Patient): Straight or Heterosexual Spiritual care concerns: No Exam Const: General: no acute distress and well developed Orientation/consciousness: oriented to person, oriented to place and confusion HENMT: Head: normocephalic Ears: external ears normal General nose exam: Normal external nose present Eyes: General: appearance normal, both eyes and all related structures Conjunctivae: conjunctivae normal Neck: Neck: normal visual inspection and full ROM Chest: Chest palpation & inspection: normal inspection of the chest and no tenderness Resp: Effort & Inspection: normal respiratory effort Auscultation: clear to auscultation bilaterally Cardio: Rate: regular rate Rhythm: regular rhythm GI: GI Palp: No abdominal tenderness and Yes Soft to palpation Skin: General skin exam: normal color and turgor normal Neuro: General: oriented to person, oriented to place and confusion Cognition (Neuro): abnormal cognition Motor exam (neuro): 5/5 motor strength present throughout Sensory Exam: normal sensation Extrem: General: normal to inspection, full ROM and no pedal edema Psych: Appearance: grossly normal Mental Status: mental status grossly normal Affect: normal affect Course Reevaluation(s) Reevaluation #1: Discussed with son. He states that mayda
[2021-05-08 11:46] LABS: Basophils Percent Auto 0.4 % (0.2-1.2); Eosinophils Absolute Auto 0.1 K/mm3 (0-0.3); Eosinophils Percent Auto 2.9 % (0-4.4); Hematocrit 35.7 % (37.0-47.0); Immature Granulocyte Absolute 0.02 K/mm3 (0.00-0.031); Immature Granulocyte Percent A 0.4 % (0-0.5); Lymphocytes Percent Auto 26.8 % (18.3-44.2); Mean Corpuscular HGB Conc 33.6 g/dl (32-36); Mean Corpuscular Hemoglobin 31.3 pg (26-34); Mean Platelet Volume 10.4 fl (7.4-10.4); Monocytes Absolute Auto 0.4 K/mm3 (0.1-0.6); Monocytes Percent Auto 8.5 % (2.6-8.5); Platelet Count Result 222 k/mm3 (150-375); Red Blood Count 3.84 M/mm3 (4.2-5.4); Red Cell Distribution Width 11.6 % (11.5-14.5); White Blood Count 4.9 K/mm3 (4.5-10.0)
[2021-05-08 12:07] LABS: Alanine Aminotransferase 15 U/L (4-35); Albumin Level 3.9 g/dL (3.5-5.1); Alkaline Phosphatase 63 U/L (38-126); Anion Gap 8 mmol/L (8-16); Aspartate Amino Transferase 24 U/L (14-36); Blood Urea Nitrogen 13 mg/dL (7-17); Calcium 9.3 mg/dL (8.4-10.2); Carbon Dioxide 24 mmol/L (22-30); Chloride 108 mmol/L (98-107); Estimated Glomerular Filt Rate > 60; Glucose 136 mg/dL (65-110); Potassium 3.9 mmol/L (3.4-5.0); Sodium 140 mmol/L (137-145)
[2021-05-08 12:21] LABS: Add Urine Microscopic? NO; Appearance Urine Clear (Clear); Bilirubin Urine Negative (Negative); Blood Urine Negative (Negative); Color Urine Straw (Yellow); Glucose Urine UA Negative (Negative); Ketones Urine Negative (Negative); Leukocyte Esterase Ur Negative LEU/UL (Negative); Nitrate Urine Negative (Negative); Protein Urine Negative (Negative); Specific Grav Ur 1.008 (1.001-1.035); Urobilinogen Urine Negative mg/dL (<2.0)
--- NOTE | 2021-05-08 12:46 | PC.NURSE ---
Per Dr. Velazquez, son wants to talk to someone about [place] [facility] [place]; [facility] made aware.
[2021-05-08 12:59] VITALS: BP 173/88; PULSE 58; RESP 15; O2SAT 100
--- NOTE | 2021-05-08 13:26 | PCCCNOTE ---
Called to ED to meet with son about [facility]/ termite treater helper care. Met with patient and son Mariusz in ED. Patient lives at [facility] in Assisted Living, Patient uses a walker and feels that she does well, Assisted living manages medications and meals and housekeeping. Educated son on residential vs termite treater helper care. Provided him with a list of nursing homes. Son is thinking forward and would like to move her closer to him in [place]. Also provided him with the benefits phone number and web address for Medicaid. Son verbalizes that is she is medically clear to be discharged from ED he is okay with her going back to [facility]. Advised that the ED doctor would make that decision. Son and Patient verbalized understanding.
[2021-05-08 13:44] VITALS: PULSE 58; RESP 16; O2SAT 98
== END 2021-05-08 13:52 ==
PROVIDERS: Emergency Provider Emergency Medicine; PCP Family Medicine
DX: R41.82 Altered mental status, unspecified (principal); I10 Essential (primary) hypertension; F03.90 Unspecified dementia, unspecified severity, without behavioral disturbance, psychotic disturbance, mood disturbance, and anxiety; E11.42 Type 2 diabetes mellitus with diabetic polyneuropathy; K21.9 Gastro-esophageal reflux disease without esophagitis; G51.0 Bell's palsy; M19.90 Unspecified osteoarthritis, unspecified site; Z96.653 Presence of artificial knee joint, bilateral
CPT/HCPCS: 36415; 51701; 70450; 71045; 80053; 81003; 82948; 85025; 93005; 99284

== ENCOUNTER 2021-05-10 21:23 | Emergency (ER) | payer MEDICARE, SELFPAY ==
--- NOTE | ~2021-05-10 | CT_ITS ---
EXAMINATION: CT brain wo con DATE: 05/10/2021 21:33 INDICATION: Right sided paresis TECHNIQUE: Computed tomography (CT) of the head was performed without intravenous contrast. The mA wa s adjusted according to patient size. Iterative reconstruction technique was employed. Exam dose: 60 5.33 mGy-cm total exam DLP. COMPARISON: 05/04/2021 CT brain FINDINGS: Intracranial cerebral atherosclerotic calcifications. Chronic left thalamic lacunar infarct. There is prominent nonspecific diminished attenuation of the s ubcortical and periventricular cerebral white matter, likely due to chronic small vessel ischemic sherri nges. No intracranial mass lesion or hemorrhage or recent cerebrovascular accident. No midline shift or mas s effect effect. No subdural or epidural hematoma is detected. There is age consistent cerebral and cerebellar volume loss. No fracture or bone destruction of the cranial vault. Included paranasal sinuses and mastoid air cell s are unremarkable. IMPRESSION: Cerebral atherosclerosis and chronic small vessel ischemic changes of cerebral white dipak er Chronic left thalamic lacunar infarct No intracranial mass lesion or hemorrhage or other acute intracranial finding Emergency room physician Dr. Jimenez was telephoned by Dr. Wright on 05/10/2021 at 2140 hours with the results. Reviewed, dictated and finalized at [facility]. Reviewed, dictated and finalized at location A. TALIZER TENDER IMPRESSION: Cerebral atherosclerosis and chronic small vessel ischemic changes of cerebral white matter Chronic left thalamic lacunar infarct No intracranial mass lesion or hemorrhage or other acute intracranial finding Emergency room physician Dr. Jimenez was telephoned by Dr. Wright on 05/10/2021 a t 2140 hours with the results.
[2021-05-10 21:22] VITALS: BP 201/90; PULSE 82; RESP 18; TEMP 36.6; O2SAT 98
--- NOTE | 2021-05-10 21:25 | ECG_ITS ---
Measurements Intervals Thatcher Rate: 63 P: 39 ID: [id number] QRS: -18 QRSD: 80 T: 1 QT: 418 QTc: 431 Interpretive Statements SINUS RHYTHM VOLTAGE CRITERIA FOR LVH BORDERLINE T WAVE ABNORMALITY- INFERIOR LEADS BASELINE ARTIFACT- I, II, III, AVR, AVL, AVF, V4-V6 BORDERLINE ECG Electronically Signed On 05-11-2021 6:45:19 BODY PIERCER by Angel Goddard D.O.
--- NOTE | 2021-05-10 21:48 | PC.NURSE ---
Upon return from CT scan pt is verbal and states she is frustrated because This keeps happening where I lose my voice for a little bit and then it comes back. Why do they keep sending me here? Its stupid. I just want to be left alone. They have got to do better. Pt is A&Ox2-3 at this time, baseline. EDP notified and at bedside.
[2021-05-10 21:50] LABS: Basophils Percent Auto 0.5 % (0.2-1.2); Eosinophils Absolute Auto 0.2 K/mm3 (0-0.3); Eosinophils Percent Auto 3.4 % (0-4.4); Hematocrit 40.4 % (37.0-47.0); Hemoglobin 13.4 g/dL (12.0-15.0); Immature Granulocyte Absolute 0.03 K/mm3 (0.00-0.031); Immature Granulocyte Percent A 0.5 % (0-0.5); Lymphocytes Absolute Auto 1.75 K/mm3 (0.9-3.2); Lymphocytes Percent Auto 28.7 % (18.3-44.2); Mean Corpuscular HGB Conc 33.2 g/dl (32-36); Mean Corpuscular Hemoglobin 31.2 pg (26-34); Mean Corpuscular Volume 94.2 fl (80-100); Monocytes Absolute Auto 0.6 K/mm3 (0.1-0.6); Neutrophils Absolute Auto 3.5 K/mm3 (1.3-6.7); Neutrophils Percent Auto 57.9 % (45.5-73.1); Platelet Count Result 251 k/mm3 (150-375); Red Blood Count 4.29 M/mm3 (4.2-5.4); Red Cell Distribution Width 11.9 % (11.5-14.5); White Blood Count 6.1 K/mm3 (4.5-10.0)
[2021-05-10 21:59] LABS: Alanine Aminotransferase 18 U/L (4-35); Albumin Level 4.3 g/dL (3.5-5.1); Alkaline Phosphatase 90 U/L (38-126); Anion Gap 11 mmol/L (8-16); Aspartate Amino Transferase 26 U/L (14-36); Bilirubin,Total 0.8 mg/dL (0.2-1.3); Blood Urea Nitrogen 17 mg/dL (7-17); Calcium 9.9 mg/dL (8.4-10.2); Carbon Dioxide 25 mmol/L (22-30); Chloride 104 mmol/L (98-107); Estimated CRCL calculation 36 ml/min; Estimated Glomerular Filt Rate > 60; Glucose 120 mg/dL (65-110); Partial Thromboplastin Time 29.1 SECONDS (22.3-36.8); Potassium 4.4 mmol/L (3.4-5.0); Prothrombin Time 13.3 Seconds (11.1-14.7); Sodium 140 mmol/L (137-145)
[2021-05-10 22:41] LABS: Add Urine Microscopic? YES; Appearance Urine Clear (Clear); Bilirubin Urine Negative (Negative); Blood Urine Negative (Negative); Color Urine Yellow (Yellow); Glucose Urine UA Negative (Negative); Ketones Urine Negative (Negative); Leukocyte Esterase Ur Trace LEU/UL (Negative); Mucus Urine Rare /lpf; Nitrate Urine Negative (Negative); Protein Urine Negative (Negative); Specific Grav Ur 1.017 (1.001-1.035); Squamous Epithelial Cell Urine Few /hpf (Few); Urobilinogen Urine Negative mg/dL (<2.0); WBC Urine 0-3 /hpf
[2021-05-10 23:34] VITALS: BP 192/100; PULSE 63; RESP 15; O2SAT 98
[2021-05-10] MEDS: hydrALAZINE 12.5 MG TABLET PO (23:55)
[2021-05-10] MEDS: CLOPIDOGREL BISULFATE 75 MG TABLET PO (23:55)
[2021-05-10 23:57] VITALS: BP 172/84; PULSE 63; RESP 20; O2SAT 97
--- NOTE | 2021-05-11 00:37 | ED.AMS ---
HPI - Altered Mental Status General Chief Complaint: Altered Mental Status Stated Complaint: DECREASED LOC LKN 1 HR AGO, BELLS PALS HX Time Seen by Provider: 05/10/21 21:28 Source: patient and EMS Mode of arrival: EMS Limitations: altered mental status History of Present Illness HPI narrative: 86-year-old with a history of hypertension, recurrent TIAs, dementia, left facial palsy here with complaints of inability to speak and was also having right-sided weakness. As per the EMS symptoms started about 1 hour ago prior to the ER arrival. She denied any headache or chest pain. She was seen in the ER few days ago for the same. Patient was rushed to CAT scan of her brain. At that time she came back to the ER she started talking and was moving without any difficulty. MD complaint: altered mental status and weakness Onset (ago): hour(s) (1) Timing confirmed by: caregiver Severity: moderate Associated symptoms: denies other symptoms Related Data Home Medications Medication Instructions Recorded Confirmed clonidine HCl 05/08/21 05/08/21 hydrochlorothiazide 05/08/21 losartan 05/08/21 metoprolol tartrate 05/08/21 sodium chloride mg 05/08/21 tramadol mg 05/08/21 Allergies Allergy/AdvReac Type Severity Reaction Status Date / Time isoniazid Allergy Severe SYNCOPE Verified 05/08/21 10:54 meperidine Allergy Mild hives Verified 05/08/21 10:54 morphine Allergy Mild confusion Verified 05/08/21 10:54 Review of Systems Review of Systems: All systems reviewed & are unremarkable except as noted in HPI and below Constitutional: Constitutional: Reports no additional constitutional complaints Eyes: Eyes: Reports no additional eye complaints ENT: Reports system reviewed and no additional complaints, except as documented Cardiovascular: Cardiovascular: Reports no additional cardiovascular complaints Respiratory: Respiratory: Reports no additional respiratory complaints Gastrointestinal: Gastrointestinal: Reports no additional gastrointestinal complaints Musculoskeletal: Musculoskeletal: Reports no additional musculoskeletal complaints Neurologic: Reports as per HPI [facility] Past Medical History Medical History Anxiety 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 Compression fracture of T12 vertebra Dementia Depression Diet-controlled type 2 diabetes mellitus Hemoglobin A1c was 5.1% in September 2018. 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 Hypertension Osteoarthritis Peripheral neuropathy Spinal stenosis of lumbar region Surgical History Surgical History History of left knee replacement History of total right knee replacement Family History Family History Unknown Family history unknown Other Hypertension Social History Social History Social History: Lives in assisted living at [facility]. She is and has 4 children. 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 No alcohol, tobacco, or illicit substance use. Mariusz Omalley (son) is her surrogate decision maker and she is listed as a full code. Smoking status: Never smoker Second hand tobacco smoke exposure: No Alcohol intake: never Substance use: never Substance use type: does not use Gender identity (if verbalized by the patient): Female Sexual Orientation (if Verbalized by the Patient): Straight or Heterosexual Spiritual care concerns: No Exam Narrative: GENERAL: Well-appearing, well-nourished, and in no acute distress. HEAD: Normocephalic, atraumatic. EYES: PERRLA and EOMI. ENT: Nares clear, Mucous membranes moist. Left-sided facial droop NECK: Supple. CHEST: Clear to auscultation. No r
[2021-05-11 00:38] VITALS: BP 147/77; PULSE 61; RESP 12; O2SAT 96
[2021-05-11 01:20] VITALS: BP 154/88; PULSE 64; RESP 13; O2SAT 99
[2021-05-11 14:22] LABS: Glucose Point of Care 80 mg/dl (65-105)
== END 2021-05-11 01:22 ==
PROVIDERS: Emergency Provider Family Medicine; PCP Family Medicine
DX: G45.9 Transient cerebral ischemic attack, unspecified (principal); F03.90 Unspecified dementia, unspecified severity, without behavioral disturbance, psychotic disturbance, mood disturbance, and anxiety; I10 Essential (primary) hypertension; E11.42 Type 2 diabetes mellitus with diabetic polyneuropathy; G51.0 Bell's palsy; M19.90 Unspecified osteoarthritis, unspecified site; K21.9 Gastro-esophageal reflux disease without esophagitis; R94.31 Abnormal electrocardiogram [ECG] [EKG]; I67.2 Cerebral atherosclerosis
CPT/HCPCS: 36415; 70450; 80053; 81001; 82948; 85025; 85610; 85730; 93005; 99284; A9270